=== PATIENT | female | born 1955 | race Caucasian/White ===

== ENCOUNTER 2021-10-07 11:53 | Outpatient (CLI) | payer MEDICARE, SELFPAY ==
--- OUTSIDE RECORDS SUMMARY | 2021-10-07 11:56 | XMS_ITS ---
:1955 Author Care Team Providers Name Role Phone EVARISTO PEÑA MD General Surgeon [phone] DEB ZAPATA MD Proof Passer Unavailable PADMA THAKUR MD Rac Specialist [phone] MORENA VASQUEZ Primary Care Provider [phone] CIARA BEAR MD Labor Economics Professor [phone] Allergies Code Code System Name Reaction Severity Status Onset NKDA ? Medications Name Status Start Date Stop Date ? ? acetaminophen 325 mg tablet Completed 05/08/201510/07 2 (two) Tablet Tablet: every 4 hours as needed Advair Diskus 250 mcg-50 Completed ? 018 mcg/dose powder for inhalation albuterol sulfate HFA 90 mcg/actuation aerosol inhaler Active ? Not available INHALE TWO PUFFS BY MOUTH EVERY 4 TO 6 HOURS NEEDED amoxicillin 500 mg capsule Active ? Not a vailable Anoro Ellipta 62.5 mcg-25 mcg/actuation powder for inhalation Ac tive ? Not available Inhale 1 puff every day by inhalation route. Augmentin 875 mg-125 mg tablet Completed ? 0 10/30/2019 Take 1 tablet every 12 hours by oral route for 10 days. Benadryl Itch Stopping 1 %-0.1 % topical cream Completed 0 04/28/2015 05/05/2015 1 (one) Cream Cream: apply 2-4 times a day to affected area Chantix Continuing Month Box 1 mg tablet Completed 009 05/28/2009 1 (one) Tablet: twice daily Combivent Respimat 20 mcg-100 mcg/actuation solution for inh alation Completed 09/19/2017 09/29/2017 1 Puff: 4 times per day for chronic obstructive pulmonary disea se Coumadin 10 mg tablet Completed 05/15/2015 05/15/2015 1 (one) Tablet: unknown Coumadin 5 mg tablet Completed 05/15/2015 06/02/2015 1 (one) Tablet: daily or as instructed Enbrel SureClick 50 mg/mL (1 Completed ? mL) subcutaneous pen injector folic acid 1 mg tablet Active ? Not avail able Take 1 tablet every day by oral route. furosemide 20 mg tablet Completed ? 10/16/19 20 Cheratussin AC 10 mg-100 mg/5 Active ? No t available mL oral liquid hydrochlorothiazide 12.5 mg tablet Active ? Not available Take 1 tablet every day by oral route for 90 days. Keflex 500 mg capsule Completed 08/07/2010 08/17/2010 1 (one) Cap: QID levofloxacin 500 mg tablet Completed ? 02/28 methotrexate 2.5 mg tablet Completed ? 11/01 Take 6 tablets every week by oral route. methotrexate sodium (PF) 25 Completed ? 06/06 mg/mL injection solution methotrexate sodium 25 mg/mL injection solution Active ? Not available 60 mg weekly Multi-Day tablet Completed 05/08/2015 05/08/2015 1 Tablet: daily mupirocin 2 % topical ointment Active ? N ot available APPLY A SMALL AMOUNT TO THE AFFECTED AREA BY TOPICAL ROUTE 3 TI MES PER DAY naproxen sodium 550 mg tablet Completed 05/08/2015 1 (one) Tablet: Twice daily as needed nicotine 21 mg/24 hr daily transdermal patch Completed 02/201504/28/2015 1 (one) Patch 24HR: daily omeprazole 20 mg capsule,delayed release Active ? Not available TAKE ONE CAPSULE BY MOUTH EVERY MORNING omeprazole 40 mg capsule,delayed release Completed 015 05/15/2015 1 (one) Capsule DR Capsule DR: daily oxycodone 10 mg tablet Completed 06/03/2015 5 1 (one) Tablet Tablet: every 4 hours as needed oxycodone 5 mg tablet Completed 06/03/2015 09/02/2015 1 (one) Tablet Tablet: bid - twice daily Percocet 5 mg-325 mg tablet Completed 08/03/201001/04 1 Tablet: 1-2 tabs PO q 4-6hrs PRN pain prednisone 10 mg tablet Active ? Not avai lable prednisone 2.5 mg tablet Active ? Not erin ilable Take 1 tablet every day by oral route. Spiriva with HandiHaler 18 mcg Completed ? 0 02/28/2018 and inhalation capsules sulfasalazine 500 mg tablet Completed 07/05/201609/05 1 (one) Tablet: as directed sulfasalazine 500 mg Completed ? 02/28/2018 tablet,delayed release tramadol 50 mg tablet Completed ? 04/18/2018 Valtrex 1 gram tablet Completed 08/16/2012 08/23/2012 1 Tablet: every eight hours azithromycin 250 mg tablet Active ? Not a vailable Problems Name Status Onset Date Source ? Herpes Zoster Unknown ? History Hyperlipidemia Active ? History Obesity Active ? History Anemia of Chronic Disease Unknown ? Histor y Anemia Active ? History Nicotine Dependence Active ? History Eustachian Tube Disorder Unknown ? History Acute Bronchitis Unknown ? History Disorder of Upper Respiratory System Unknown ? History Acute Exacerbation of Chronic Obstructive Unknown ? History Airways Disease Chronic Obstructive Lung Disease Active ? History Gastro-esophageal Reflux Disease with Unknown ? History Esophagitis Gastroesophageal Reflux Disease Active ? History Cholelithiasis without Obstruction Active ? History Rheumatoid Arthritis Active ? History Joint Pain Unknown ? History Torticollis Unknown ? History Ganglion Cyst Unknown ? History Generalized Enlarged Lymph Nodes Unknown ? History Snoring Active ? History History of Total Hip Arthroplasty Active ? History Artificial Knee Joint Present Active ? [employer] Adult Health Examination Active ? History Screening Mammography Active ? History At Risk - Finding Unknown ? History Pain in Right Hip Joint Unknown ? History Procedure by Method Unknown ? History Pain in Right Knee Unknown ? History Procedure Unknown ? History History of SARS-CoV-2 Active ? ? Procedures Date Name Performed by ? 10/25/2017 Colonoscopy Information not avai lable Notes: small rectal polyp/internal he morrhoids 10/25/2017 Colonoscopy Information not avai lable Notes: small rectal polyp, internal h emorrhoids 07/16/2010 Orthopedic Surgery Information not avai lable Notes: TKA 09/05/1997 Hemorrhoidectomy Information not avai lable 09/05/1981 Tubal Ligation Information not avai lable ? Hip Surgery Information not avai lable Notes: Right Total Hip ? Eye Surgery Information not avai lable Notes: both ? Hip Surgery Information not avai lable Notes: total Right hip ? Eye Surgery Information not avai lable Notes: both eyes 02/22/2018 US, Abdomen, Limited [facility] [address] [place] [address] (Work Place) 03/14/2018 XR, Ribs, Unilateral, W/ PA Chest [facility] (Internal) [address] [place] [address] (Work Place) 03/14/2018 XR, Scapula [facility] (Internal) [address] [place] [address] (Work Place) 09/11/2018 LDCT, Chest, for Lung Cancer Screening [facility] Radiology (Internal) [address] [place] [address] (Work Place) 11/02/2018 MAMMO, Screening, Tomosynthesis, [facility] (Internal) Bilateral [address] [place] [address] (Work Place) 11/15/2018 CT, Chest, W/o Contrast [facility] (Internal) [address] [place] [address] (Work Place) 08/20/2019 XR, Knee, 4 or More View [facility] Rad[facility] (Internal) [address] [place] [address] (Work Place) 10/30/2019 XR, Chest, 2 View [facility] Radiology (Internal) [address] [place] [address] (Work Place) 10/30/2019 US, Echocardiogram P_visiting Physician s [address] [place] [address] (Work Place) 11/02/2019 MAMMO, Screening, Tomosynthesis, [facility] (Internal) Bilateral [address] [place] [address] (Work Place) 01/03/2020 LDCT, Chest, for Lung Cancer Screening [facility] Radiology (Internal) [address] [place] [address] (Work Place) 05/08/2020 LDCT, Chest, for Lung Cancer Screening [facility] Radiology (Internal) [address] [place] [address] (Work Place) 09/10/2020 XR, Chest, 2 View [facility] Radiology (Internal) [address] [place] [address] (Work Place) 09/10/2020 XR, Ribs, Unilateral [facility] Radiology (Internal) [address] [place] [address] (Work Place) 04/14/2021 MAMMO, Screening, Tomosynthesis, [facility] (Internal) Bilateral [address] [place] [address] (Work Place) 04/14/2021 XR, Lumbosacral Spine, 2 or 3 View [facility] (Internal) [address] [place] [address] (Work Place) 04/14/2021 XR, Sacroiliac Joint(s), 3 or More [facility] (Internal) View [address] [place] [address] (Work Place) 04/14/2021 LDCT, Chest, for Lung Cancer Screening [facility] Radiology (Internal) [address] [place] [address] (Work Place) 07/16/2021 US, Echocardiogram, Transthoracic, [facility] (Internal) Complete [address] [place] [address] (Work Place) Results Lab Results Date Name Specimen Result Interpretation Description Value Range Status Address ? 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 ? SWAB ? Performi quan ? Final [place] ng Lab [address] [facility] lab Hospita l Lab (Internal) : [address] 07/16/2021 CBC W/ Auto BLD ? Wbc 7.4 5.0-10.0 Final [place] Diff 10*3/uL 10*3/uL [facility] L ab (Internal) : [address] ? ? BLD ? Rbc 4.18 4.10-5.30 Final [place] 10*6/uL 10*6/uL [facility] Hospital L ab (Internal) : [address] ? ? BLD ? Hgb 13.2 g/dL 12.0-16.0 Final Nort h g/dL [facility] Hospital L ab (Internal) : [address] ? ? BLD ? Hct 40.7 % 37.0-47.0 Final [facility] Hospital L ab (Internal) : [address] ? ? BLD High Mcv 97.4 fL 80.0-96.0 Final [facility] Hospital L ab (Internal) : [address] ? ? BLD ? Mch 31.6 pg 26.0-32.0 Final [facility] L ab (Internal) : [address] ? ? BLD ? Mchc 32.4 g/dL 31.0-35.0 Final Nort h g/dL [facility] Hospital L ab (Internal) : [address] ? ? BLD High Rdw 15.1 % 11.5-14.5 Final [facility] L ab (Internal) : [address] ? ? BLD ? Plt 320 130-450 Final [place] 10*3/uL 10*3/uL [facility] Hospital L ab (Internal) : [address] ? ? BLD ? Anc 5.19 ? Final [place] 10*3/uL [facility] L ab (Internal) : [address] ? ? BLD High Nlr 4.25 0.00-3.20 Final [facility] L ab (Internal) : [address] ? ? BLD ? Neutro 70.2 % 40.0-75.0 Final [facility] L ab (Internal) : [address] ? ? BLD Low Lymph 16.5 % 20.0-50.0 Final [facility] L ab (Internal) : [address] ? ? BLD ? [facility] 8.8 % 2.0-10.0 Final [facility] : [address] ? ? BLD ? Eos 3.5 % 1.0-6.0 % Final [facility] Hospital L ab (Internal) : [address] ? ? BLD ? Baso 0.7 % 0.0-1.0 % Final [facility] Hospital L ab (Internal) : [address] ? ? BLD ? Ig 0.3 % 0.0-0.9 % Final [facility] Hospital L ab (Internal) : [address] 07/16/2021 BNP (B-type S High Nt-bnp 152 pg/mL 0-125 [facility] [place] Natriuretic pg/mL Count ry Peptide), Hospita l Lab Prohormone (Inter nal): N-terminal, [address], [place] Immunoassay, Blood 07/16/2021 CMP, Serum or S ? g/r 106 mg/dL 74-106 Fin al [facility] Plasma mg/dL [facility] (Internal) : [address] ? ? S ? Bun 12 mg/dL 7-18 Final [facility] mg/dL [facility] Hospital L ab (Internal) : [address] ? ? S ? Crea 0.7 mg/dL 0.6-1.0 Final [facility] mg/dL [facility] (Internal) : [address] ? ? S ? Ca 9.1 mg/dL 8.5-10.1 Final [facility] mg/dL [facility] (Internal) : [address] ? ? S ? Na 141 136-145 Final [facility] mmol/L mmol/L [facility] (Internal) : [address] ? ? S ? K 4.2 3.5-5.1 Final [facility] mmol/L mmol/L [facility] (Internal) : [address] ? ? S ? Cl 105 98-107 Final [facility] mmol/l mmol/l [facility] (Internal) : [address] ? ? S ? Tco2 28.6 21.0-32.0 Final [facility] mmol/L mmol/L [facility] (Internal) : [address] ? ? S Low Tp 6.2 g/dL 6.4-8.2 Final [facility] g/dL [facility] (Internal) : [address] ? ? S ? Alb 3.4 g/dL 3.4-5.0 Final [facility] g/dL [facility] (Internal) : [address] ? ? S ? Tbil 0.40 0.20-1.00 Final [place] mg/dL mg/dL [facility] (Internal) : [address] ? ? S ? Alp 106 U/L 46-116 Final [place] U/L [facility] Hospital L ab (Internal) : [address] ? ? S ? Alt 25 U/L 14-59 U/L Final [place] (Sgpt) [facility] Hospital L ab (Internal) : [address] ? ? S Low Ast 14 U/L 15-37 U/L Final [place] (Sgot) [facility] Hospital L ab (Internal) : [address] 07/16/2021 HbA1C BLD ? Ha1C 5.8 % 4.0-6.0 % Final Nor th (Hemoglobin Count ry a1C), Blood [facility] Lab (Internal) : [address] 07/16/2021 RBC BLD ? Aniso occasiona ? Final Nor th Morphology, l Count Blood Hospital L ab (Internal) : [address] 06/18/2021 CBC W/ Auto BLD ? Wbc 5.2 5.0-10.0 Final [place] Diff 10*3/uL 10*3/uL [facility] Hospital L ab (Internal) : [address] ? ? BLD ? Rbc 4.19 4.10-5.30 Final [place] 10*6/uL 10*6/uL [facility] (Internal) : [address] ? ? BLD ? Hgb 13.0 g/dL 12.0-16.0 Final Nort h g/dL [facility] Hospital L ab (Internal) : [address] ? ? BLD ? Hct 39.5 % 37.0-47.0 Final [place] % [facility] Hospital L ab (Internal) : [address] ? ? BLD ? Mcv 94.3 fL 80.0-96.0 Final [facility] Hospital L ab (Internal) : [address] ? ? BLD ? Mch 31.0 pg 26.0-32.0 Final [facility] Hospital L ab (Internal) : [address] ? ? BLD ? Mchc 32.9 g/dL 31.0-35.0 Final Nort h g/dL [facility] Hospital L ab (Internal) : [address] ? ? BLD High Rdw 14.6 % 11.5-14.5 Final [facility] L ab (Internal) : [address] ? ? BLD ? Plt 315 130-450 Final [place] 10*3/uL 10*3/uL [facility] Hospital L ab (Internal) : [address] ? ? BLD ? Anc 3.96 ? Final [place] 10*3/uL [facility] Hospital L ab (Internal) : [address] ? ? BLD High Nlr 6.09 0.00-3.20 Final [facility] L ab (Internal) : [address] ? ? BLD High Neutro 76.7 % 40.0-75.0 Final [facility] L ab (Internal) : [address] ? ? BLD Low Lymph 12.6 % 20.0-50.0 Final [facility] L ab (Internal) : [address] ? ? BLD ? [facility] 9.1 % 2.0-10.0 Final [facility] L ab (Internal) : [address] ? ? BLD ? Eos 1.2 % 1.0-6.0 % Final [facility] L ab (Internal) : [address] ? ? BLD ? Baso 0.2 % 0.0-1.0 % Final [facility] L ab (Internal) : [address] ? ? BLD ? Ig 0.2 % 0.0-0.9 % Final [facility] L ab (Internal) : [address] 06/18/2021 CMP, Serum or S ? g/r 95 mg/dL 74-106 [facility] Plasma mg/dL [facility] (Internal) : [address] ? ? S ? Bun 8 mg/dL 7-18 Final [facility] mg/dL [facility] (Internal) : [address] ? ? S ? Crea 0.7 mg/dL 0.6-1.0 Final [facility] mg/dL [facility] (Internal) : [address] ? ? S ? Ca 8.7 mg/dL 8.5-10.1 Final [facility] mg/dL [facility] (Internal) : [address] ? ? S ? Na 137 136-145 Final [facility] mmol/L mmol/L [facility] (Internal) : [address] ? ? S Low K 3.4 3.5-5.1 Final [facility] mmol/L mmol/L [facility] (Internal) : [address] ? ? S Low Cl 97 mmol/l 98-107 Final [facility] mmol/l [facility] (Internal) : [address] ? ? S ? Tco2 31.9 21.0-32.0 Final [facility] mmol/L mmol/L [facility] (Internal) : [address] ? ? S ? Tp 7.3 g/dL 6.4-8.2 Final [facility] g/dL [facility] (Internal) : [address] ? ? S Low Alb 2.9 g/dL 3.4-5.0 Final [facility] g/dL [facility] (Internal) : [address] ? ? S ? Tbil 0.60 0.20-1.00 Final [facility] mg/dL mg/dL [facility] (Internal) : [address] ? ? S ? Alp 108 U/L 46-116 Final [facility] U/L [facility] (Internal) : [address] ? ? S ? Alt 23 U/L 14-59 U/L Final [facility] (Sgpt) [facility] (Internal) : [address] ? ? S ? Ast 26 U/L 15-37 U/L Final [place] (Sgot) [facility] Hospital L ab (Internal) : [address] [facility] 06/18/2021 Ldh, Serum or S High Ldh 285 U/L 81-234 Final [place] Plasma U/L [facility] L ab (Internal) : [address] [facility] 06/18/2021 Procalcitonin ? Pct <0.15 0.00-0.[address] [facility] , Serum NG/mL NG/mL [facility] L ab (Internal) : [address] [facility] 06/18/2021 D-dimer, PLASMA High Dimq 0.85 mg/L 0.00-0.50 Final [place] Quant, Plasma mg/L [facility] [address] [facility] 06/18/2021 Ferritin, S High Ferr 315 NG/mL 8-252 Final [place] Serum or NG/mL [facility] L ab (Internal) : [address] [facility] 06/18/2021 Respiratory FLUID ABNORMAL Final microbiol ? 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 ? SWAB ? Performi quan ? Final [place] ng Lab [address] [facility] lab Hospita l Lab (Internal) : [address] 05/25/2021 CBC W/ Auto BLD ? Wbc 7.6 5.0-10.0 Final [place] Diff 10*3/uL 10*3/uL [facility] [address] [facility] ? ? BLD ? Rbc 4.78 4.10-5.30 Final [place] 10*6/uL 10*6/uL [facility] (Internal) : [address] ? ? BLD ? Hgb 15.0 g/dL 12.0-16.0 Final Nort h g/dL [facility] Hospital L ab (Internal) : [address] ? ? BLD ? Hct 46.0 % 37.0-47.0 Final [facility] Hospital L ab (Internal) : [address] ? ? BLD High Mcv 96.2 fL 80.0-96.0 Final [facility] Hospital L ab (Internal) : [address] ? ? BLD ? Mch 31.4 pg 26.0-32.0 Final [facility] Hospital L ab (Internal) : [address] ? ? BLD ? Mchc 32.6 g/dL 31.0-35.0 Final Nort h g/dL [facility] Hospital L ab (Internal) : [address] ? ? BLD High Rdw 14.7 % 11.5-14.5 Final [facility] L ab (Internal) : [address] ? ? BLD ? Plt 289 130-450 Final [place] 10*3/uL 10*3/uL [facility] Hospital L ab (Internal) : [address] ? ? BLD ? Anc 5.68 ? Final [place] 10*3/uL [facility] Hospital L ab (Internal) : [address] ? ? BLD High Nlr 5.74 0.00-3.20 Final [facility] L ab (Internal) : [address] ? ? BLD ? Neutro 74.7 % 40.0-75.0 Final [facility] L ab (Internal) : [address] ? ? BLD Low Lymph 13.0 % 20.0-50.0 Final [facility] Hospital L ab (Internal) : [address] ? ? BLD ? [facility] 8.7 % 2.0-10.0 Final [facility] L ab (Internal) : [address] ? ? BLD ? Eos 2.4 % 1.0-6.0 % Final [facility] L ab (Internal) : [address] , [place] ? ? BLD ? Baso 0.8 % 0.0-1.0 % Final [facility] Hospital L ab (Internal) : [address] ? ? BLD ? Ig 0.4 % 0.0-0.9 % Final [facility] Hospital L ab (Internal) : [address] 05/25/2021 HbA1C BLD ? Ha1C 5.3 % 4.0-6.0 % Final Nor th (Hemoglobin Count ry a1C), Blood [facility]pi [facility] Lab (Internal) : [address] 05/25/2021 CMP, Serum or S ? g/r 97 mg/dL 74-106 [facility] Plasma mg/dL [facility] (Internal) : [address] ? ? S ? Bun 10 mg/dL 7-18 Final [facility] mg/dL [facility] (Internal) : [address] ? ? S ? Crea 0.6 mg/dL 0.6-1.0 Final [facility] mg/dL [facility] (Internal) : [address] ? ? S ? Ca 8.5 mg/dL 8.5-10.1 Final [facility] mg/dL [facility] (Internal) : [address] ? ? S ? Na 136 136-145 Final [facility] mmol/L mmol/L [facility] (Internal) : [address] ? ? S ? K 4.2 3.5-5.1 Final [place] mmol/L mmol/L [facility] (Internal) : [address] ? ? S ? Cl 98 mmol/l 98-107 Final [facility] mmol/l [facility] (Internal) : [address] ? ? S ? Tco2 27.1 21.0-32.0 Final [facility] mmol/L mmol/L [facility] (Internal) : [address] ? ? S ? Tp 7.0 g/dL 6.4-8.2 Final [facility] g/dL [facility] (Internal) : [address] ? ? S ? Alb 3.4 g/dL 3.4-5.0 Final [place] g/dL [facility] L ab (Internal) : [address] ? ? S ? Tbil 0.50 0.20-1.00 Final [place] mg/dL mg/dL [facility] L ab (Internal) : [address] ? ? S ? Alp 115 U/L 46-116 Final [place] U/L [facility] L ab (Internal) : [address] ? ? S ? Alt 17 U/L 14-59 U/L Final [place] (Sgpt) [facility] L ab (Internal) : [address] ? ? S Low Ast 10 U/L 15-37 U/L Final [place] (Sgot) [facility] L ab (Internal) : [address] 05/25/2021 Lipid Panel, S ? Chol 189 mg/dL 0-200 Kae l [place] Serum mg/dL [facility] L ab (Internal) : [address] ? ? S ? Trig 96 mg/dL 0-150 Final [place] mg/dL [facility] L ab (Internal) : [address] ? ? S High Hdl 65 mg/dL 40-60 Final [place] mg/dL [facility] L ab (Internal) : [address] ? ? S ? Ldl 105 mg/dL 0-130 Final [place] mg/dL [facility] (Internal) : [address] [facility] ESR BLD ? Esr 9 mm/h 0-30 mm/h Final Nor th (Erythrocyte Coun try Sediment[facility] Hos [facility]ital Lab Rate), Blood (Int ernal): [address] [facility]21 CRP, High S High Rcrp 24.19 0.00-3.00 Final [place] Sensitivity, mg/L mg/L Coun try Serum or Hospital Lab Plasma (Internal) : [address] 05/25/2021 Vitamin D, S ? 25-[place] <4.0 ? Final [place] 25-Hydroxy, xy D2 NG/mL Count ry Total, Serum Hosp ital Lab (Internal) : [address] ? ? S ? 25-[place] 26 NG/mL ? Final [place] xy D3 [facility] (Internal) : [address] ? ? S ? 25-[place] 26 NG/mL ? Final [place] xy D [facility] Total Hospital L ab (Internal) : [address] 10/30/2019 CBC W/ Auto BLD ? Wbc 7.3 5.0-10.0 Final [place] Diff 10*3/uL 10*3/uL [facility] (Internal) : [address] ? ? BLD ? Rbc 4.59 4.10-5.30 Final [place] 10*6/uL 10*6/uL [facility] Hospital L ab (Internal) : [address] ? ? BLD ? Hgb 13.6 g/dL 12.0-16.0 Final Nort h g/dL [facility] Hospital L ab (Internal) : [address] ? ? BLD ? Hct 43.7 % 37.0-47.0 Final [facility] Hospital L ab (Internal) : [address] ? ? BLD ? Mcv 95.2 fL 80.0-96.0 Final [facility] Hospital L ab (Internal) : [address] ? ? BLD ? Mch 29.6 pg 26.0-32.0 Final [facility] Hospital L ab (Internal) : [address] ? ? BLD ? Mchc 31.1 g/dL 31.0-35.0 Final Nort h g/dL [facility] L ab (Internal) : [address] t ? ? BLD High Rdw 15.7 % 11.5-14.5 Final [facility] L ab (Internal) : [address] t ? ? BLD ? Plt 296 130-450 Final [place] 10*3/uL 10*3/uL [facility] L ab (Internal) : [address] t ? ? BLD ? Anc 5.79 ? Final [place] 10*3/uL [facility] L ab (Internal) : [address] t ? ? BLD High Neutro 78.9 % 40.0-75.0 Final [facility] L ab (Internal) : [address] t ? ? BLD Low Lymph 10.4 % 20.0-50.0 Final [facility] L ab (Internal) : [address] ? ? BLD ? [facility] [place] 7.9 % 2.0-10.0 Final [facility] L ab (Internal) : [address] ? ? BLD ? Eos 1.8 % 1.0-6.0 % Final [facility] L ab (Internal) : [address] t ? ? BLD ? Baso 0.7 % 0.0-1.0 % Final [facility] L ab (Internal) : [address] ? ? BLD ? Ig 0.3 % 0.0-0.9 % Final [facility] L ab (Internal) : [address] t 10/30/2019 RBC BLD ? Aniso small ? Final [place] Morphology, Count Blood Hospital L ab (Internal) : [address] t ? ? BLD ? Polychro occasiona ? Final Nort h m l [facility] L ab (Internal) : [address] t ? ? BLD ? Baso rare ? Final [facility] L ab (Internal) : [address] 10/30/2019 CMP, Serum or S ? g/r 100 mg/dL 74-106 Fin al [place] Plasma mg/dL [facility] L ab (Internal) : [address] t ? ? S ? Bun 11 mg/dL 7-17 Final North mg/dL [facility] L ab (Internal) : [address] t ? ? S Low Crea 0.50 0.52-1.04 Final [place] mg/dL mg/dL [facility] L ab (Internal) : [address] t ? ? S ? Ca 9.1 mg/dL 8.4-10.2 Final [place] mg/dL [facility] L ab (Internal) : [address] t ? ? S ? Na 138 137-145 Final [place] mmol/L mmol/L [facility] L ab (Internal) : [address] t ? ? S ? K 4.4 3.5-5.1 Final [place] mmol/L mmol/L [facility] L ab (Internal) : [address], [place] ? ? S ? Cl 102 98-107 Final [place] mmol/L mmol/L [facility] L ab (Internal) : [address] t ? ? S ? Tco2 26.0 22.0-30.0 Final [place] mmol/L mmol/L [facility] L ab (Internal) : [address] t ? ? S ? Tp 7.0 g/dL 6.3-8.2 Final [place] g/dL [facility] L ab (Internal) : [address] t ? ? S ? Alb 3.9 g/dL 3.5-5.0 Final [place] g/dL [facility] L ab (Internal) : [address] ? ? S ? Tbil 0.5 mg/dL 0.2-1.3 Final [place] mg/dL [facility] L ab (Internal) : [address] t ? ? S ? Alp 108 U/L 38-126 Final North U/L [facility] L ab (Internal) : [address] t ? ? S ? Alt 18 U/L 9-52 U/L Final [place] (Sgpt) [facility] L ab (Internal) : [address] t ? ? S ? Ast 27 U/L 14-36 U/L Final [place] (Sgot) [facility] L ab (Internal) : [address] 10/30/2019 Ferritin, S ? Ferr 26 NG/mL 11-264 Final N orth Serum or NG/mL [facility] Hospital L ab (Internal) : [address] 10/30/2019 Iron S ? Iron 142 ug/dL 37-170 Final Nor th Saturation, ug/dL Count ry Serum Hospital L ab (Internal) : [address] t ? ? S ? Tibc 371 ug/dL 265-497 Final North ug/dL [facility] L ab (Internal) : [address] t ? ? S ? Sat 38 % 20-55 % Final [facility] L ab (Internal) : [address] 09/14/2018 Ferritin, S Low Ferr 8 NG/mL 11-264 Final No rth Serum or NG/mL [facility] Hospital L ab (Internal) : [address] 09/14/2018 RBC BLD - Aniso moderate ? Final Nort h Morphology, Count ry Blood Hospital L ab (Internal) : [address] ? ? BLD - Polychro occasiona ? Final Nort h m l [facility] L ab (Internal) : [address] 09/14/2018 Iron S - Iron 48 ug/dL 37-170 Final Nort h Saturation, ug/dL Count ry Serum Hospital L ab (Internal) : [address] ? ? S - Tibc 430 ug/dL 265-497 Final North ug/dL [facility] L ab (Internal) : [address] ? ? S Low Sat 11 % 20-55 % Final [facility] L ab (Internal) : [address] 09/14/2018 CRP, High S High Rcrp 1.31 0.10-0.30 Final [place] Sensitivity, mg/dL mg/dL Coun try Serum or Hospital Lab Plasma (Internal) : [address] 09/14/2018 CMP, Serum or S High g/r 120 mg/dL 74-106 Fin al [facility] Plasma mg/dL [facility] L ab (Internal) : [address] ? ? S - Bun 11 mg/dL 7-17 Final North mg/dL [facility] L ab (Internal) : [address] ? ? S - Crea 0.60 0.52-1.04 Final North mg/dL mg/dL [facility] L ab (Internal) : [address] ? ? S - Ca 8.9 mg/dL 8.4-10.2 Final [place] mg/dL [facility] L ab (Internal) : [address] ? ? S - Na 139 137-145 Final North mmol/L mmol/L [facility] L ab (Internal) : [address] ? ? S - K 4.1 3.5-5.1 Final [place] mmol/L mmol/L [facility] L ab (Internal) : [address] ? ? S - Cl 102 98-107 Final [place] mmol/L mmol/L [facility] L ab (Internal) : [address] ? ? S - Tco2 27.0 22.0-30.0 Final [place] mmol/L mmol/L [facility] L ab (Internal) : [address] ? ? S - Tp 6.8 g/dL 6.3-8.2 Final [place] g/dL [facility] L ab (Internal) : [address] ? ? S - Alb 3.8 g/dL 3.5-5.0 Final [place] g/dL [facility] L ab (Internal) : [address] t ? ? S - Tbil 0.4 mg/dL 0.2-1.3 Final [place] mg/dL [facility] L ab (Internal) : [address] ? ? S - Alp 105 U/L 38-126 Final [place] U/L [facility] L ab (Internal) : [address] ? ? S - Alt 18 U/L 9-52 U/L Final [place] (Sgpt) [facility] L ab (Internal) : [address] ? ? S - Ast 29 U/L 14-36 U/L Final [place] (Sgot) [facility] L ab (Internal) : [address] 09/14/2018 CBC W/ Auto BLD - Wbc 7.8 5.0-10.0 Final [place] Diff 10*3/uL 10*3/uL [facility] L ab (Internal) : [address] ? ? BLD - Rbc 4.29 4.10-5.30 Final [place] 10*6/uL 10*6/uL [facility] L ab (Internal) : [address] ? ? BLD - Hgb 12.2 g/dL 12.0-16.0 Final Nort h g/dL [facility] L ab (Internal) : [address] ? ? BLD - Hct 40.0 % 37.0-47.0 Final [place] % [facility] L ab (Internal) : [address] ? ? BLD - Mcv 93.2 fL 80.0-96.0 Final [place] fL [facility] L ab (Internal) : [address] ? ? BLD - Mch 28.4 pg 26.0-32.0 Final [facility] L ab (Internal) : [address] t ? ? BLD Low Mchc 30.5 g/dL 31.0-35.0 Final Nort h g/dL [facility] L ab (Internal) : [address] t ? ? BLD High Rdw 18.2 % 11.5-14.5 Final [facility] L ab (Internal) : [address] t ? ? BLD - Plt 260 130-450 Final [place] 10*3/uL 10*3/uL [facility] L ab (Internal) : [address] t ? ? BLD - Anc 6.05 ? Final [place] 10*3/uL [facility] L ab (Internal) : [address] t ? ? BLD High Neutro 77.9 % 40.0-75.0 Final [facility] L ab (Internal) : [address] t ? ? BLD Low Lymph 13.1 % 20.0-50.0 Final [facility] L ab (Internal) : [address] t ? ? BLD - [facility] 6.0 % 2.0-10.0 Final [facility] L ab (Internal) : [address] ? ? BLD - Eos 2.2 % 1.0-6.0 % Final [facility] L ab (Internal) : [address] ? ? BLD - Baso 0.5 % 0.0-1.0 % Final [facility] L ab (Internal) : [address] ? ? BLD - Ig 0.3 % 0.0-0.9 % Final [facility] L ab (Internal) : [address] 10/25/2017 Pathology TISS ? Report results ? Final N orth Study [facility] L ab (Internal) : [address] 09/19/2017 Venipuncture BLD ? Venpn* ? ? Final [facility] L ab (Internal) : [address] 09/19/2017 RBC BLD ? Aniso moderate ? Final Nort h Morphology, Count [facility] L ab (Internal) : [address] t ? ? BLD ? Hypo small ? Final [facility] L ab (Internal) : [address] t 09/19/2017 CBC W/ Auto BLD ? Wbc 6.9 5.0-10.0 Final [place] Diff 10*3/uL 10*3/uL [facility] L ab (Internal) : [address] t ? ? BLD ? Rbc 4.38 4.10-5.30 Final [place] 10*6/uL 10*6/uL [facility] L ab (Internal) : [address] t ? ? BLD Low Hgb 10.2 g/dL 12.0-16.0 Final Nort h g/dL [facility] L ab (Internal) : [address] t ? ? BLD Low Hct 35.7 % 37.0-47.0 Final [facility] L ab (Internal) : [address] t ? ? BLD ? Mcv 81.5 fL 80.0-96.0 Final [facility] L ab (Internal) : [address] ? ? BLD Low Mch 23.3 pg 26.0-32.0 Final [facility] L ab (Internal) : [address] ? ? BLD Low Mchc 28.6 g/dL 31.0-35.0 [facility] L ab (Internal) : [address] t ? ? BLD High Rdw 18.7 % 11.5-14.5 Final [facility] L ab (Internal) : [address] t ? ? BLD ? Plt 370 130-450 Final [place] 10*3/uL 10*3/uL [facility] L ab (Internal) : [address] t ? ? BLD ? Anc 4.75 ? Final [place] 10*3/uL [facility] L ab (Internal) : [address] t ? ? BLD ? Neutro 68.7 % 40.0-75.0 Final [facility] L ab (Internal) : [address] ? ? BLD Low Lymph 17.2 % 20.0-50.0 Final [facility] L ab (Internal) : [address] ? ? BLD High [facility] [place] 11.1 % 2.0-10.0 Final [facility] L ab (Internal) : [address] ? ? BLD ? Eos 2.5 % 1.0-6.0 % Final [facility] L ab (Internal) : [address] ? ? BLD ? Baso 0.4 % 0.0-1.0 % Final [facility] L ab (Internal) : [address] ? ? BLD ? Ig 0.1 % 0.0-0.9 % Final [facility] L ab (Internal) : [address] 07/05/2017 Pap Test, MISC ? Hpv see ? Final [facility] Thinprep, report [facility] Hospital Lab (Internal) : [address] ? ? MISC ? Pap see ? Final [place] report [facility] L ab (Internal) : [address] ? ? MISC ? Report (added) ? Correc [place] results [facility] L ab (Internal) : [address] 05/02/2017 Venipuncture BLD ? Venpn* ? ? Final [facility] L ab (Internal) : [address] 05/02/2017 TIBC (Total SERUM ? Tibc 422 ug/dL 265-497 Kae l [place] Iron-binding ug/dL Coun try Capacity), Hospit al Lab Serum (Internal) : [address] 05/02/2017 Iron, Serum SERUM Low [place] 19 ug/dL 37-170 Final [place] ug/dL [facility] L ab (Internal) : [address] 05/02/2017 RBC BLD ? Aniso small ? Final [place] Morphology, Count Blood Hospital L ab (Internal) : [address] ? ? BLD ? Hypo rare ? Final [facility] L ab (Internal) : [address] t 05/02/2017 CBC W/ Auto BLD ? Wbc 8.2 5.0-10.0 Final [place] Diff 10*3/uL 10*3/uL [facility] L ab (Internal) : [address] ? ? BLD ? Rbc 4.14 4.10-5.30 Final [place] 10*6/uL 10*6/uL [facility] L ab (Internal) : [address] ? ? BLD Low Hgb 9.7 g/dL 12.0-16.0 Final North g/dL [facility] L ab (Internal) : [address] ? ? BLD Low Hct 33.2 % 37.0-47.0 Final [facility] L ab (Internal) : [address] ? ? BLD ? Mcv 80.2 fL 80.0-96.0 Final [facility] L ab (Internal) : [address] t ? ? BLD Low Mch 23.4 pg 26.0-32.0 Final [facility] Hospital L ab (Internal) : [address] ? ? BLD Low Mchc 29.2 g/dL 31.0-35.0 Final Nort h g/dL [facility] L ab (Internal) : [address] t ? ? BLD High Rdw 19.5 % 11.5-14.5 Final [facility] L ab (Internal) : [address] t ? ? BLD ? Plt 324 130-450 Final [place] 10*3/uL 10*3/uL [facility] L ab (Internal) : [address] t ? ? BLD ? Anc 6.11 ? Final [place] 10*3/uL [facility] L ab (Internal) : [address] t ? ? BLD ? Neutro 74.6 % 40.0-75.0 Final [facility] L ab (Internal) : [address] t ? ? BLD Low Lymph 12.7 % 20.0-50.0 Final [facility] L ab (Internal) : [address] ? ? BLD ? [facility] [place] 9.8 % 2.0-10.0 Final [facility] L ab (Internal) : [address] t ? ? BLD ? Eos 1.8 % 1.0-6.0 % Final [facility] L ab (Internal) : [address] ? ? BLD ? Baso 0.7 % 0.0-1.0 % Final [facility] L ab (Internal) : [address] ? ? BLD ? Ig 0.4 % 0.0-0.9 % Final [facility] L ab (Internal) : [address] 05/02/2017 Ferritin, S Low Ferr 6 NG/mL 11-264 Final No rth Serum or NG/mL [facility] L ab (Internal) : [address] 03/28/2017 Venipuncture BLD ? Venpn* ? ? Final [facility] L ab (Internal) : [address] 03/28/2017 CMP, Serum or S High g/r 108 mg/dL 74-106 Fin al [place] Plasma mg/dL [facility] L ab (Internal) : [address] t ? ? S ? Bun 12 mg/dL 7-17 Final North mg/dL [facility] L ab (Internal) : [address] ? ? S ? Crea 0.60 0.52-1.04 Final [place] mg/dL mg/dL [facility] L ab (Internal) : [address] t ? ? S ? Ca 8.9 mg/dL 8.4-10.2 Final [place] mg/dL [facility] L ab (Internal) : [address] t ? ? S Low Na 135 137-145 Final [place] mmol/L mmol/L [facility] L ab (Internal) : [address] ? ? S ? K 4.2 3.5-5.1 Final [place] mmol/L mmol/L [facility] L ab (Internal) : [address] t ? ? S ? Cl 101 98-107 Final [place] mmol/L mmol/L [facility] L ab (Internal) : [address] ? ? S ? Tco2 27.0 22.0-30.0 Final [place] mmol/L mmol/L [facility] L ab (Internal) : [address] ? ? S ? Tp 7.1 g/dL 6.3-8.2 Final [place] g/dL [facility] L ab (Internal) : [address] ? ? S ? Alb 3.9 g/dL 3.5-5.0 Final [place] g/dL [facility] L ab (Internal) : [address] ? ? S ? Tbil 0.6 mg/dL 0.2-1.3 Final [place] mg/dL [facility] L ab (Internal) : [address] ? ? S ? Alp 126 U/L 38-126 Final [place] U/L [facility] L ab (Internal) : [address] ? ? S ? Alt 21 U/L 9-52 U/L Final [place] (pt) [facility] L ab (Internal) : [address] ? ? S ? Ast 20 U/L 14-36 U/L Final [place] (Sgot) [facility] L ab (Internal) : [address] t 02/28/2017 Venipuncture BLD ? Venpn* ? ? Final [facility] L ab (Internal) : [address] 02/28/2017 RBC BLD ? Aniso large ? Final [place] Morphology, Count Blood Hospital L ab (Internal) : [address] ? ? BLD ? Hypo small ? Final [facility] ab (Internal) : [address] ? ? BLD ? Micro small ? Final [facility] L ab (Internal) : [address] ? ? BLD ? Poik small ? Final [place] [hpf] [facility] L ab (Internal) : [address] ? ? BLD ? Polychro small ? Final [facility] L ab (Internal) : [address] t 02/28/2017 CRP, High S High Rcrp 6.78 0.10-0.30 Final [place] Sensitivity, mg/dL mg/dL Coun try Serum or Hospital Lab Plasma (Internal) : [address] t 02/28/2017 ESR BLD High Esr 35 mm/h 0-30 mm/h Final No rth (Erythrocyte Coun try [facility] Lab Rate), Blood (Int ernal): [address] 02/28/2017 CBC W/ Auto BLD ? Wbc 6.6 5.0-10.0 Final [place] Diff 10*3/uL 10*3/uL [facility] L ab (Internal) : [address] ? ? BLD ? Rbc 4.14 4.10-5.30 Final [place] 10*6/uL 10*6/uL [facility] L ab (Internal) : [address] ? ? BLD Low Hgb 9.7 g/dL 12.0-16.0 Final [place] g/dL [facility] L ab (Internal) : [address] ? ? BLD Low Hct 33.0 % 37.0-47.0 Final [facility] L ab (Internal) : [address] ? ? BLD Low Mcv 79.7 fL 80.0-96.0 Final [facility] Hospital L ab (Internal) : [address] ? ? BLD Low Mch 23.4 pg 26.0-32.0 Final [facility] L ab (Internal) : [address] ? ? BLD Low Mchc 29.4 g/dL 31.0-35.0 Final Nort h g/dL [facility] L ab (Internal) : [address] ? ? BLD High Rdw 19.9 % 11.5-14.5 Final [facility] L ab (Internal) : [address] ? ? BLD ? Plt 351 130-450 Final [place] 10*3/uL 10*3/uL [facility] L ab (Internal) : [address] ? ? BLD ? Anc 4.71 ? Final [place] 10*3/uL [facility] L ab (Internal) : [address] ? ? BLD ? Neutro 71.3 % 40.0-75.0 Final [facility] L ab (Internal) : [address] ? ? BLD Low Lymph 16.4 % 20.0-50.0 Final [facility] L ab (Internal) : [address] ? ? BLD ? [facility] 9.4 % 2.0-10.0 Final [facility] L ab (Internal) : [address] ? ? BLD ? Eos 2.1 % 1.0-6.0 % Final [facility] ab (Internal) : [address] ? ? BLD ? Baso 0.6 % 0.0-1.0 % Final [facility] ab (Internal) : [address] ? ? BLD ? Ig 0.2 % 0.0-0.9 % Final [facility] ab (Internal) : [address] Past Encounters 07/16/2021 Dyspnea on Exertion; Obesity; Rheumatoid Arthritis; Chronic Obstructive Lung Disease; Pneumonia Caused by SARS-CoV-2; Hypertensive Disorder Morena Beasley PA: [address] [place] [address], Ph. 07/01/2021 Pneumonia Caused by SARS-CoV-2; Paronych ia of Finger; Hypervolemia; Dyspnea on Exertion Morena Beasley PA: [address] [place] [address], Ph. 06/18/2021 Acute Exacerbation of Chronic Obstructiv e Airways Disease Morena Beasley PA: [address] [place] [address], Ph. 04/14/2021 Adult Health Examination; Screening Mamm ography; Hyperlipidemia; Rheumatoid Arthritis; Chronic Obstructive Lung Disease; Vitamin D Deficiency; Administration of Pneumococcal Vaccine; Low Back Pain; Hype rtensive Disorder; Obesity; Screening fo r Malignant Neoplasm of Respiratory Tract; Nicotine Dependence Morena Beasley PA: [address] [place] [address], Ph. 09/11/2020 Contusion of Left Chest Wall; Elevated B lood-pressure Reading without Diagnosis of Hypertension Morena Beasley PA: [address] [place] [address], Ph. 05/08/2020 Chronic Obstructive Lung Disease; Smoker Deb Zapata MD: [address] [place] [address], Ph. Social History Tobacco Smoking Status Light Tobacco Smoker (09/08 Notes: q uit -4 pack per day) cigarettes per day s tarted age 16- 1 ppd average Vaccine List Vaccine Type pneumococcal conjugate PCV 13 04/14/2021?0.5 mL rubella Td (adult) preservative free 07/05/2017?0.5 mL Tdap 05/28/2009?0.5 mL Plan of Care Reminders Provider Appointments None ? ? recorded. Lab None ? ? recorded. Referral None ? ? recorded. Procedures None ? ? recorded. Surgeries None ? ? recorded. Imaging None ? ? recorded. Vitals 07/16/2021 08:20AM Follow Up 20 Height Weight BMI Blood Pressure 152.4 cm 95.71 kg 41.2 kg/m2 120/80 mm[Hg] 07/01/2021 11:20AM Same Day 20 Height Weight BMI Blood Pressure 152.4 cm 94.55 kg 40.7 kg/m2 130/84 mm[Hg] 04/14/2021 03:40PM AWV 40 Height Weight BMI Blood Pressure 152.4 cm 101.2 kg 43.6 kg/m2 144/82 mm[Hg] 09/11/2020 08:40AM Acute 20 Height Weight BMI Blood Pressure 152.4 cm 99.52 kg 42.8 kg/m2 148/82 mm[Hg] 05/08/2020 02:30PM Follow Up 30 Height Weight BMI Blood Pressure 152.4 cm 99.9 kg 43 kg/m2 163/86 mm[Hg] 01/03/2020 10:00AM Follow Up 30 Height 152.4 cm 10/30/2019 09:40AM Follow Up 20 Height Weight BMI Blood Pressure 152.4 cm 104.14 kg 44.8 kg/m2 146/90 mm[Hg] 10/16/2019 11:00AM Acute 20 Height Weight BMI Blood Pressure 152.4 cm 104.42 kg 45 kg/m2 142/76 mm[Hg] 08/20/2019 02:15PM Office 30 Height 152.4 cm 11/15/2018 01:40PM Any 40 Height Weight BMI Blood Pressure 152.4 cm 107.1 kg 46.1 kg/m2 (1) 140/78 mm[H g] (2) 142/90 mm[Hg ] 11/15/2018 03:30PM Follow Up 30 Height Weight BMI Blood Pressure 152.4 cm 107.8 kg 46.4 kg/m2 158/80 mm[Hg] 11/01/2018 12:40PM Acute 20 Height Weight BMI Blood Pressure 152.4 cm 107.13 kg 46.1 kg/m2 154/98 mm[Hg] 04/18/2018 09:00AM Office 15 Height Weight BMI Blood Pressure 152.4 cm 100.7 kg 43.4 kg/m2 124/78 mm[Hg] 03/14/2018 10:40AM Acute 20 Height Weight BMI Blood Pressure 152.4 cm 102.65 kg 44.2 kg/m2 164/94 mm[Hg] 02/22/2018 05:00PM Acute 40 Height Weight BMI Blood Pressure 152.4 cm 103.24 kg 44.4 kg/m2 128/72 mm[Hg] 11/23/2017 Height Weight Blood Pressure 152.4 cm 101.6 kg 160/88 mm[Hg] 11/01/2017 Weight Blood Pressure 99.54 kg 152/98 mm[Hg] 09/29/2017 Weight Blood Pressure 98.29 kg 142/70 mm[Hg] 09/19/2017 Weight Blood Pressure 98.52 kg 131/75 mm[Hg] 09/12/2017 Weight Blood Pressure 98.43 kg 122/70 mm[Hg] 07/05/2017 Weight Blood Pressure 96.34 kg 150/85 mm[Hg] 01/10/2017 Weight Blood Pressure 94.17 kg 152/88 mm[Hg] 09/02/2015 Height Weight Blood Pressure 152.4 cm 88.04 kg 150/100 mm[Hg] 07/15/2015 Height Weight Blood Pressure 152.4 cm 86.73 kg 128/72 mm[Hg] 06/09/2015 Weight Blood Pressure 86.73 kg 124/80 mm[Hg] 04/28/2015 Blood Pressure 108/70 mm[Hg] 04/22/2015 Height Weight Blood Pressure 152.4 cm 86.68 kg 132/75 mm[Hg] 03/10/2015 Height Weight Blood Pressure 152.4 cm 86.68 kg 124/82 mm[Hg] 09/17/2014 Weight Blood Pressure 83.78 kg 122/76 mm[Hg] 01/14/2014 Height Weight Blood Pressure 154.94 cm 84.23 kg 116/68 mm[Hg] 08/23/2012 Weight Blood Pressure 85 kg (1) 136/92 mm[Hg] (2) 144/82 mm[Hg] 08/11/2012 Weight Blood Pressure 86.05 kg 134/66 mm[Hg] 10/14/2010 Weight 77.82 kg 08/12/2010 Weight 77.82 kg 08/07/2010 Weight Blood Pressure 77.82 kg 122/74 mm[Hg] 07/01/2010 Weight Blood Pressure 78.27 kg (1) 124/82 mm[Hg] (2) 140/82 mm[Hg] 06/01/2010 Weight Blood Pressure 78.67 kg 124/82 mm[Hg] 05/26/2010 Height Weight 153.67 cm 79.83 kg 05/01/2010 Height Weight Blood Pressure 153.67 cm 79.83 kg 120/60 mm[Hg] 11/18/2009 Weight Blood Pressure 78.02 kg 140/82 mm[Hg] 05/28/2009 Weight Blood Pressure 75.3 kg 130/90 mm[Hg] 02/21/2009 Height Weight Blood Pressure 154.31 cm 75.3 kg 142/80 mm[Hg] 12/22/2006 Height Weight Blood Pressure 154.94 cm 76.66 kg 122/80 mm[Hg] 07/08/2005 Height Weight Blood Pressure 154.94 cm 73.48 kg 120/66 mm[Hg]
--- OUTSIDE RECORDS SUMMARY | 2021-10-07 11:56 | XMS_ITS | Encounter Summary ---
:1955 Author Care Team Providers Name Role Phone Morena VASQUEZ Primary Care Provider [phone] Tae Cochran MD Spine Nurse [phone] Ciera Cedeno MD General Surgeon [phone] Deb Zapata MD Pattern Attendant Unavailable Jose Francisco Khan MD Powertrain Control Systems Engineer [phone] Reason for Visit Bilateral low back pain; hypertension Assessment and Plan 1. 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 ASCVD risk factors: age, obesity, former smoker, htn, hld Will proceed with basic serologies and e chocardiogram consider cards referral congratulated on tobacco cessation she continues anoro daily, has not requi red her rescue inhaler ? US, echocardiogram, transt horacic, complete ? BNP (B-type natriuretic pe ptide), prohormone N-terminal, quant, immunoassay, blood ? CBC w/ auto diff ? CMP, serum or plasma 2. Obesity BMI 43.6%. Reviewed diet, recommended she reduce et oh and carbohydrates. discussed if women chose to drink they s hould not consume more than 7 etoh beverages per week ? HbA1c (hemoglobin A1c), bl ood 3. Rheumatoid arthritis Followed by Dr. Khan. Last se en 07/14/21 (telehealth). She is currently on methotrexate 60 mg qweek and will be sta rting prednisone 2.5 mg qd. 4. Chronic obstructive lung dise ase Currently stable. She is on an luna daily, she has not required rescue inhaler. She has quit smoking since covi d19. She is utd on LDCT. She is utd on PCV13, PPSV23 04/2022. Encouraged covid19 vaccin ation, pt refuses flu. 5. Pneumonia caused by SARS-CoV- 2 65-year-old female, current ev eryday smoker, with pertinent past medical history of COPD and rheumatoid arthritis on methotrexate who was admitted to [facility] in [facility] 06/18/2021 to 06/23/2021 for COVID-19 pneumonia. At the time of infection patient had kno wn COVID-19 exposure and was unvaccinated. While admitted to the hospital she required supplemental oxygen, she was treated with Decadron and remdesivir. She impr nabil throughout her stay, was weaned fro m oxygen and discharged 06/23/2021. Patient endorses significant improvement in her SOB at rest and dyspnea on exertion has returned to baseline. She is not coughing. There is no chest pain or pressure. She has no evidence of murmur on physical examination. 6. Hypertensive disorder BP normotensive in clinic on l ow dose hctz. No change in plan of care. Discussion Note: None recorded.Patient educational handouts: No information available. Plan of Care Reminders Provider Appointments Follow up 20 El izabeth 10/16/2021 PEDRO Beasley 10:20AM ? Awv 40 Mroena 04/15/2022 PEDRO Beasley 10:40AM Lab BNP (B-type [place] Natriuretic Peptide), 07/16/2021 Hospital L ab Prohormone N-terminal, (Internal ) Quant, Immunoassay, Blood ? CBC W/ Auto [place] Diff 07/16/2021 [facility] Lab (Internal) ? CMP, Serum or [facility] Plasma 07/16/2021 [facility] Lab (Internal) ? HbA1C [facility] ry (Hemoglobin a1C), Blood 07/16/2021 [facility] Lab (Internal) Referral None recorded. ? ? Procedures None recorded. ? ? Surgeries None recorded. ? ? Imaging US, [facility] ry Echocardiogram, 07/16/2021 [facility] Radiolo gy Transthoracic, Complete (Interna l) Medications Name Start Date ? ? albuterol sulfate HFA 90 mcg/actuation aerosol inhaler ? INHALE TWO PUFFS BY MOUTH EVERY 4 TO 6 HOURS NEEDE D amoxicillin 500 mg capsule ? Anoro Ellipta 62.5 mcg-25 mcg/actuation powder for inh alation ? Inhale 1 puff every day by inhalation route. folic acid 1 mg tablet ? Take 1 tablet every day by oral route. hydrochlorothiazide 12.5 mg tablet ? Take 1 tablet every day by oral route for 90 days. methotrexate sodium 25 mg/mL injection solution ? 60 mg weekly mupirocin 2 % topical ointment ? APPLY A SMALL AMOUNT TO THE AFFECTED AREA BY TOPICAL ROUTE 3 TIMES PER DAY omeprazole 20 mg capsule,delayed release ? TAKE ONE CAPSULE BY MOUTH EVERY MORNING prednisone 2.5 mg tablet ? Take 1 tablet every day by oral route. Medications Administered None recorded. Vitals Height Weight BMI Blood Pressure 5 ft 210 lbs 16 oz 41.2 kg/m2 120/80 mm[Hg] Results Lab Results Date Name Specimen Result Interpretation Description Value Range Status Address ? 07/16/2021 CBC W/ Auto BLD ? Wbc 7.4 5.0-10.0 Final [facility] Diff 10*3/uL 10*3/uL Hospital Lab (Internal) : [address] ? ? BLD ? Rbc 4.18 4.10-5.30 Final [facility] ountry 10*6/uL 10*6/uL Hospital Lab (Internal) : [address] ? ? BLD ? Hgb 13.2 g/dL 12.0-16.0 Final [facility] g/dL Hospital L ab (Internal) : [address] ? ? BLD ? Hct 40.7 % 37.0-47.0 Final [facility] Hospital L ab (Internal) : [address] ? ? BLD High Mcv 97.4 fL 80.0-96.0 Final [facility] fL Hospital L ab (Internal) : [address] ? ? BLD ? Mch 31.6 pg 26.0-32.0 Final [facility] pg Hospital L ab (Internal) : [address] ? ? BLD ? Mchc 32.4 g/dL 31.0-35.0 Final [facility] Country g/dL Hospital L ab (Internal) : [address] ? ? BLD High Rdw 15.1 % 11.5-14.5 Final [facility] Hospital L ab (Internal) : [address] ? ? BLD ? Plt 320 130-450 Final [facility] ntry 10*3/uL 10*3/uL Hospital Lab (Internal) : [address], [place] ? ? BLD ? Anc 5.19 ? Final [facility] try 10*3/uL Hospital Lab (Internal) : [address] ? ? BLD High Nlr 4.25 0.00-3.20 Final [facility] L ab (Internal) : [address] ? ? BLD ? Neutro 70.2 % 40.0-75.0 Final [facility] Hospital L ab (Internal) : [address] ? ? BLD Low Lymph 16.5 % 20.0-50.0 Final [facility] Hospital L ab (Internal) : [address] ? ? BLD ? Tripp 8.8 % 2.0-10.0 % Final [facility] L ab (Internal) : [address] ? ? BLD ? Eos 3.5 % 1.0-6.0 % Final [facility] L ab (Internal) : [address] ? ? BLD ? Baso 0.7 % 0.0-1.0 % Final [facility] L ab (Internal) : [address] ? ? BLD ? Ig 0.3 % 0.0-0.9 % Final [facility] L ab (Internal) : [address] t 07/16/2021 BNP (B-type S High Nt-bnp 152 pg/mL 0-125 Kae l [facility] Natriuretic pg/mL Hospi [facility] Lab Peptide), (Beveling And Edging Machine Operator al): Prohormone [address] N-terminal, Krista [address] Quant, Immunoassay, Blood 07/16/2021 CMP, Serum or S ? g/r 106 mg/dL 74-106 Fin al [facility] Plasma mg/dL Hospital L ab (Internal) : [address] ? ? S ? Bun 12 mg/dL 7-18 mg/dL [facility] Hospital L ab (Internal) : [address] ? ? S ? Crea 0.7 mg/dL 0.6-1.0 Final [facility] mg/dL Hospital L ab (Internal) : [address] ? ? S ? Ca 9.1 mg/dL 8.5-10.1 Final [place] mg/dL Hospital L ab (Internal) : [address] ? ? S ? Na 141 136-145 Final [place] [facility] mmol/L mmol/L Hospital L ab (Internal) : [address] ? ? S ? K 4.2 3.5-5.1 Final [place] [facility] mmol/L mmol/L Hospital L ab (Internal) : [address] ? ? S ? Cl 105 98-107 Final [place] [facility] mmol/l mmol/l Hospital L ab (Internal) : [address] ? ? S ? Tco2 28.6 21.0-32.0 Final [facility] mmol/L mmol/L Hospital L ab (Internal) : [address] ? ? S Low Tp 6.2 g/dL 6.4-8.2 Final [facility] g/dL Hospital L ab (Internal) : [address] ? ? S ? Alb 3.4 g/dL 3.4-5.0 Final [facility] g/dL Hospital L ab (Internal) : [address] ? ? S ? Tbil 0.40 0.20-1.00 Final [facility] ountry mg/dL mg/dL Hospital L ab (Internal) : [address] ? ? S ? Alp 106 U/L 46-116 U/L Final [facility] Hospital L ab (Internal) : [address] ? ? S ? Alt 25 U/L 14-59 U/L Final [facility] ountry (Sgpt) Hospital L ab (Internal) : [address] ? ? S Low Ast 14 U/L 15-37 U/L Final [facility] ountry (Sgot) Hospital L ab (Internal) : [address] 07/16/2021 HbA1C BLD ? Ha1C 5.8 % 4.0-6.0 % Final [facility] (Hemoglobin Hospi leonardo Lab a1C), Blood (Inte rnal): [address], [place] Allergies Code Code System Name Reaction Severity Onset NKDA ? ? ? Problems Name Status Onset Date Source ? Hyperlipidemia Active ? History Obesity Active ? History Anemia Active ? History Nicotine Dependence Active ? History Chronic Obstructive Lung Disease Active ? History Gastroesophageal Reflux Disease Active ? History Cholelithiasis without Obstruction Active ? History Rheumatoid Arthritis Active ? History Snoring Active ? History History of Total Hip Arthroplasty Active ? History Artificial Knee Joint Present Active ? Hi story Adult Health Examination Active ? History Screening Mammography Active ? History History of SARS-CoV-2 Active ? [...] Information not avai lable Notes: both eyes 07/16/2021 US, Echocardiogram, Transthoracic, [facility] Radiology (Internal) Complete [address] [place] [address] (Work Place) Vaccine List Vaccine Type pneumococcal conjugate PCV 13 04/14/2021?0.5 mL rubella Td (adult) preservative free 07/05/2017?0.5 mL Tdap 05/28/2009?0.5 mL Social History Tobacco Smoking Status Light Tobacco Smoker (09/08 Notes: q uit -4 pack per day) cigarettes per day s tarted age 16- 1 ppd avera ge Have you been exposed to N chemicals or toxins? What is the highest grade or [id number] level of school you have completed or the highest degree you have received? Exposure to Asbestos N Are you currently employed? Y Are you blind or do you have Y Notes: c orrective lenses difficulty seeing? What is your code status? 0 What was the date of your 07/16/2021 most recent tobacco screening? Do you have an advanced N directive? Do you use any illicit or N recreational drugs? What is your exercise level? Occasional Notes: h ousework, stairs in home How many years have you 40 smoked tobacco? Exposure to Silica N What is your level of alcohol Moderate Notes: patient drinks 3 consumption? etoh bevs per night. She notes will drink eit her 3 vodka sodas or 3 bee rs. Which of your hands is Right dominant? Live alone or with others? with others Notes: spo use Do you have any pets? Y Language Difficulties No What is your current pack 30ormorepackyears years? Are you deaf or do you have N serious difficulty hearing? Hard of hearing or deaf in Y Notes: carlson s not have one or both ears? 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 Past Encounters 07/16/2021 Dyspnea on Exertion; Obesity; Rheumatoid Arthritis; Chronic Obstructive Lung Disease; Pneumonia Caused by SARS-CoV-2; Hypertensive Disorder Morena Beasley PA: [address] [place] [address], Ph. 07/01/2021 Pneumonia Caused by SARS-CoV-2; Paronych ia of Finger; Hypervolemia; Dyspnea on Exertion Morena Beasley PA: [address] [place] [address], Ph. 06/18/2021 Acute Exacerbation of Chronic Obstructiv e Airways Disease PEDRO Millard: [address] [place] [address], Ph. History of Present Illness ? Hypertension F/U Reported By: Patient HPI: Medications: taking medicati ons as directed, checks blood pressure at home, range:; HCTZ 12.5 grge y. Lifestyle: regular exercise, limiting/avoiding salt. 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 </div><div>No chest pain or pressure. </div><div>1 pillow, no orthopnea. </div><div>No PND. </div><di v>Patient notes history of snoring. </div><div>Not currently smo theo, she quit when hospitalized for covid19. </div><div>Currentl y drinking - 10 etoh beverages per week. </div><div>Patient has ga ined 3# since prior visit. </div><div>She is tracking her weight daily at home.</div><div>She feels fully recovered from covid19.</div> ? Lower Back Pain Reported By: Patient HPI: Location: bilateral. Quality : constant; due to arthritis. Severity: pain level 5/10, worst pain 9/10. Duration: 6 months. Context: ; sews alot during the day , sitting but tries to get up and move around. Alleviating Factors: heat, O TC medication, NSAIDs. Aggravating Factors: sitting. Associated Symptoms : no weakness, no numbness, no tingling, no swelling, no catching/lockin g, no popping/clicking, no buckling, no grinding, no instability, no radiation down leg Note: <div>04/14/21 BP upper limits of normal, persistent. </div><div> </div><div>Recommended pt start HCTZ 12.5 mg daily. (07/01/21 BP 130/84)</div><div><br&g t;</div><div>Low back pain - Chronic low back pain, axial. H/O RA. Question sacroilitis from RA. . </div><div>Recommended PT, pt declines. She will try aleve PM at bedtime with MAPAP. Can use heat, topical lidocaine and aspercream. Her veterinarian poultry started on prednisone 2.5 mg qd 07/14/21. She plans to start this today. She notes rheumatology is also recommending a referral to PT and Alyssa is going to move forward with this.</div><div> </div><div>&l t;br></div><div>Rheumatology prescribed prednisone 2.5 mg daily , states saw him 07/14/2021 phone call visit.</div>Review of Systems: ROS as noted in the HPI Review of Systems None recorded. Physical Exam ? General Adult Exam (female) Reported By: Patient Constitutional: General Appearance: healthy- appearing, well-developed, obese. Level of Distress: NAD. Ambulation : ambulating normally Psychiatric: Insight: good judgement. Men leonardo Status: active and alert, normal mood, normal affect. Orienta tion: to time, to place, to person. Memory: recent memory normal , remote memory normal Head: Head: normocephalic, atrauma tic Lungs: Respiratory effort: no dyspn ea. Auscultation: breath sounds normal, good air movement, CTA excep t as noted, no wheezing, no rales/crackles, no rhonchi Cardiovascular: Apical Impulse: not displace d. Heart Auscultation: RRR, normal S1, normal S2, no murmurs, no ru bs, no gallops Musculoskeletal:: Extremities: no edema Neurologic: Gait and Station: normal gai t, normal station. Cranial Nerves: grossly intact Skin: Nails: ; LT index finger, di stal lateral nail fold there is erythema, tenderness and whi te discharge, no fluctuance - RESOLVED
== END 2021-10-07 11:54 | disposition home or self-care (01) ==
PROVIDERS: Visit Provider Family Medicine
DX: U07.1 COVID-19 (principal)
CPT/HCPCS: 96365; Q0047

== ENCOUNTER 2023-05-13 09:16 | Outpatient (CLI) | payer OTHER, SELFPAY ==
--- NOTE | 2023-05-13 08:00 | DI.RAD_ITS ---
Exam(s) XR KNEE LT 3V AP,LAT,SHERLY EXAM: XR KNEE LT 3V AP,LAT,SHERLY CLINICAL HISTORY: L knee pain. TECHNIQUE: 2D digital imaging was performed of the left knee. Three images were obtained. AP, late ral and PA tunnel views were obtained. COMPARISON: No exams were available for comparison FINDINGS: BONES: No acute fracture is present. No bony destructive lesion is seen. JOINTS: There are marked degenerative changes of the left knee characterized by joint space narrowing and bony hypertrophy. The findings are most marked in the medial femoral tibial and patellofemoral joints. There is flattening of the articular surfaces in the medial femoral tibial joint. No joint effusion is seen. No loose body. SOFT TISSUE: Normal. IMPRESSION: Marked osteoarthritis of the left knee. DATA REPOSITORY: RADIATION DOSE DELIVERED:
--- NOTE | 2023-05-13 08:00 | DI.RAD_ITS ---
Exam(s) XR HIP LT COMPLETE AP PELVIS EXAM: XR HIP LT COMPLETE AP PELVIS CLINICAL HISTORY: L hip pain. TECHNIQUE: 2D digital imaging was performed of the left hip. Three views were obtained. AP pelvis and lateral left hip views were obtained. COMPARISON: No exams were available for comparison FINDINGS: BONES: No acute fracture is present. No bony destructive lesion is seen. JOINTS: No dislocation present. There are marked degenerative changes of the left hip with joint spac e narrowing and osteophytes. Note is made of a right total hip replacement which appears unremarkabl e. There are degenerative changes seen in both the lumbar spine in the sacroiliac joints. SOFT TISSUE: Mild atherosclerosis. IMPRESSION: Marked osteoarthritis of the left hip. DATA REPOSITORY: RADIATION DOSE DELIVERED:
== END 2023-05-13 09:17 | disposition home or self-care (01) ==
LOC: DIORS 09:16
PROVIDERS: PCP Internal Medicine; Referring Provider Internal Medicine; Visit Provider Physician Assistant
DX: M17.12 Unilateral primary osteoarthritis, left knee (principal); M16.12 Unilateral primary osteoarthritis, left hip
CPT/HCPCS: 73562; 73502

== ENCOUNTER 2023-06-20 04:42 | Outpatient (CLI) | payer OTHER, SELFPAY ==
[2023-06-20 15:22] LABS: HCT 41.3 % (36.0-46.0); HGB 13.6 g/dL (11.2-15.7); MCH 29.4 pg (27.0-33.0); MCHC 32.9 % (32.0-36.0); MCV 89 fL (80-95); MPV 8.6 fL (8.0-11.0); Platelet Count 230 10^3/uL (130-400); RBC 4.62 10^6/uL (3.93-5.22); RDW 13.4 % (11.7-14.6); RDW-SD 43.8 fL; WBC 8.93 10^3/uL (4.4-10.8)
[2023-06-20 15:57] LABS: Anion Gap 6.1 mmol/L (3-11); BUN 21 mg/dL (7-18); CO2 28.9 mmol/L (21.0-32.0); CREATININE 0.6 mg/dL (0.55-1.02); Calcium 9.7 mg/dL (8.5-10.1); Chloride 102 mmol/L (98-107); Estimated GFR 98.32 (mL/min/1.73m2); Glucose 103 mg/dL (74-106); Potassium 4.2 mmol/L (3.5-5.1); Sodium 137 mmol/L (136-145)
== END 2023-06-20 04:43 | disposition home or self-care (01) ==
LOC: LBO 04:42
PROVIDERS: PCP Internal Medicine; Visit Provider Student in an Organized Health Care Education/Training Program
DX: M16.12 Unilateral primary osteoarthritis, left hip (principal); Z01.818 Encounter for other preprocedural examination
CPT/HCPCS: 36415; 80048; 85027

== ENCOUNTER 2023-06-29 05:54 | Day surgery (SDC) | payer OTHER, SELFPAY ==
[2023-06-29] VITALS (10 sets, daily range): BP systolic 121–153; BP diastolic 43–113; PULSE 72–87; RESP 16–22; TEMP 36.1–36.7; O2SAT 88–98; BMI 42.0
[2023-06-29] MEDS: Lactated Ringers 1,000 ML 80 ML IV (06:45)
[2023-06-29] MEDS: Celecoxib 200 MG CAP 400 MG PO (06:45)
[2023-06-29] MEDS: Acetaminophen 500 MG TAB 1000 MG PO (06:45)
--- NOTE | 2023-06-29 06:45 | DI.RAD_ITS ---
Exam(s) XR HIP LT IN OR EXAM: XR HIP LT IN OR CLINICAL HISTORY: hip fracture. TECHNIQUE: 2D and realtime digital imaging was performed. COMPARISON: CR XR HIP LT COMPLETE AP PELVIS from 05/13/2023 FINDINGS: Hard copy images show placement of the left total hip prosthesis. The alignment appears satisfactor y. Please see procedure note for details. Fluoro time: 58seconds RADIATION DOSE DELIVERED: Gener=12.33 mGy
--- NOTE | 2023-06-29 07:05 | W.ANESPRE ---
General Info Date of Service Date Performed: 06/29/23 Height: 5 ft 1 in Weight: 100.9 kg Body Mass Index (BMI): 42.0 Surgical Procedure: Operation Date: 06/29/23 07:50 Proposed Procedure Side Surgeon p Hip Total Hip Anterior, ACTIS Left Jared Meier MD Meds Allergies and Home Medications Allergies Allergy/AdvReac Type Severity Reaction Status Date / Time No Known Allergies Allergy Verified 06/28/23 11:30 Home Medication Medication Instructions Recorded albuterol sulfate 90 mcg/actuation 2 puff inhalation Q6H PRN 05/13/23 aerosol inhaler (ProAir HFA) furosemide 20 mg tablet 20 mg PO DAILY 05/13/23 hydrochlorothiazide 12.5 mg tablet 12.5 mg PO DAILY 05/13/23 omeprazole 20 mg capsule,delayed 20 mg PO DAILY 05/13/23 release umeclidinium 62.5 mcg-vilanterol 1 inh inhalation DAILY 05/13/23 25 mcg/actuation powdr for inhalation (Anoro Ellipta) adalimumab 40 mg/0.8 mL 40 mg subcut Q2W 06/02/23 subcutaneous syringe kit (Humira) cholecalciferol (vitamin D3) 50 50 mcg PO DAILY 06/02/23 mcg (2,000 unit) capsule folic acid 1 mg tablet 1 mg PO DAILY 06/02/23 meloxicam 15 mg tablet 15 mg PO DAILY 06/02/23 multivitamin 1 tab PO DAILY 06/02/23 tramadol 50 mg tablet 50 mg PO TID PRN 06/20/23 Current Visit Medications: Current Medications Generic Name Dose Route Start Last Admin Trade Name Luisana PRN Reason Stop Dose Admin Acetaminophen 1,000 mg 06/29/23 06:00 06/29/23 06:45 Acetaminophen 500 Mg Tab PO 07/29/23 05:59 1,000 mg PREOP MOJGAN Administration Celecoxib 400 mg 06/29/23 06:00 06/29/23 06:45 Celecoxib 200 Mg Cap PO 07/29/23 05:59 400 mg PREOP MOJGAN Administration Tranexamic Acid 1,000 mg/ 60 mls @ 360 mls/hr 06/29/23 06:00 Sodium Chloride IV 07/29/23 05:59 PREOP MOJGAN Ringer's Solution 1,000 mls @ 80 mls/hr 06/29/23 06:00 06/29/23 06:45 IV 07/28/23 23:59 80 mls/hr INFUSION MOJGAN Administration Cefazolin Sodium/Dextrose 2 gm in 50 mls @ 100 mls/hr 06/29/23 06:00 Ancef Duplex IVPB 07/28/23 23:59 PREOP MOJGAN IV Miscellaneous Supplies 1 each 06/29/23 06:00 Iv Access IV 07/28/23 23:59 DIRECTED MOJGAN Sodium Chloride 0 ml 06/29/23 06:00 Normal Saline Flush 10 Ml Syr IV 07/28/23 23:59 PRN PRN Sodium Chloride 0 ml 06/29/23 06:00 Normal Saline 10 Ml Vial IJ 07/28/23 23:59 DIRECTED PRN Sterile Water 0 ml 06/29/23 06:00 Water,Injection,Sterile 10 Ml Vial IJ 07/28/23 23:59 DIRECTED PRN PFSH Active Problems Active Problems: Problem Status Onset Code Rheumatoid arthritis M06.9 HIREN (obstructive sleep apnea) G47.33 Obesity E66.9 Nicotine dependence F17.200 Hypertension I10 Hyperlipidemia E78.5 GERD (gastroesophageal reflux disease) K21.9 COPD (chronic obstructive pulmonary disease) J44.9 Primary osteoarthritis of left hip M16.12 Primary osteoarthritis of left knee M17.12 Medical History Medical History History of COVID-19 Herpes zoster Anemia Surgical History Surgical History History of total right hip replacement History of total right knee replacement (TKR) Tobacco Smoking/Tobacco Use Status: Current every day Tobacco Type: cigarettes Alcohol Alcohol Intake: current Alcohol intake frequency: a few times a month Substance Use Substance use: Never Substance use type: does not use Vital Signs and Lab Results Vital Signs Most Recent Vital Signs in EMR: Most Recent Vital Signs Temp Pulse Resp BP Pulse Ox 36.6 C 87 16 134/57 L 95 06/29/23 06:16 06/29/23 06:16 06/29/23 06:16 06/29/23 06:16 06/29/23 06:16 Lab Results Blood Type / Crossmatch: No Data to Display Complete Blood Count: White Blood Count 8.93 10^3/uL (4.4-10.8) 06/20/23 15:15 Red Blood Count 4.62 10^6/uL (3.93-5.22) 06/20/23 15:15 Hemoglobin 13.6 g/dL (11.2-15.7) 06/20/23 15:15 Hematocrit 41.3 % (36.0-46.0) 06/20/23 15:15 Platelet Count 230 10^3/uL (130-400) 06/20/23 15:15 Complete Metabolic Panel: Sodium 137 mmol/L (136-145) 06/20/23 15:15 Potassium 4.2 mmol/L (3.5-5.1) 06/20/23 15:15 Chloride 102 mmol/L (98-107) 06/20/23 15:15 Carbon Dioxide 28.9 mmol/L (21.0-32.0) 06/20/23 15:15 BUN 21 mg/dL (7-18) H 06/20/23 15:15 Creatinine 0.6 mg/dL (0.55-1.02) 06/20/23 15:15 Est GFR (CKD-EPI 2020) 98.32 (mL/min/1.73m2) 06/20/23 15:15 Calcium 9.7 mg/dL (8.5-10.1) 06/20/23 15:15 Glucose 103 mg/dL (74-106) 06/20/23 15:15 Liver Function Panel: No Data to Display Coagulation Panel: No Data to Display Cardiac Panel: No Data to Display Arterial Blood Gas: No Data to Display Venous Blood Gas: No Data to Display Pancreas Panel: No Data to Display Thyroid Panel: No Data to Display Infectious Disease: No Data to Display Blood Cultures: No Data to Display Toxicology Panel: No Data to Display Anesthesia Assessment and Plan Anesthesia History Personal History: No History of Anesthesia Complications Family History: No Family History of Anesthesia Complications Exercise Tolerance Exercise Tolerance: Metabolic Equivalents>4 Pertinent Negatives Pertinent Negatives: No Symptoms of GERD and No Major Cardiovascular Symptoms or Complaints Cardiac & Pulmonary Exam Cardiac Exam: Normal S1/S2 Heart Sounds Pulmonary Exam: Clear Bilateral Breath Sounds Implantable Cardiac Device Does patient have a Pacemaker or an ICD?: No Airway Exam Known Difficult Airway: No Mallampati Class: 2 Mouth Opening: Normal (> 3cm) Thyromental Distance: Less than 3 cm Neck Range of Motion: Full ROM Neck Circumference: Normal Teeth Condition: Normal Dentition ASA Classification ASA Score: ASA 3 Emergency Case?: No NPO Status NPO Status: NPO Clears >2 hours, Solids >8 hours Anesthesia Plan Resuscitation Status: Full Code Anesthesia Technique: Spinal Anesthesia Airway Planned: Natural Airway Monitors Used: Standard Monitors
[2023-06-29] MEDS: ceFAZolin 2 GM/50 ML BAG IVPB (08:09)
[2023-06-29] MEDS: fentaNYL 100 MCG/2 ML VIAL IVP ×2 (10:33→10:40)
--- NOTE | 2023-06-29 10:45 | W.PM.OP ---
Date of service: 06/29/23 Time of Service: 08:00 Operative Note Operative Note DATE OF PROCEDURE: 06/29/23 PRE-OP DIAGNOSIS: Left Hip Osteoarthritis POST-OP DIAGNOSIS: same PROCEDURE: Left Anterior Total Hip Arthroplasty with Intraoperative Navigation SURGEON: Jared Meier PEDIATRIC PHYSICAL THERAPIST: Grady Locke ANESTHESIA TYPE: Spinal Refer to Anesthesia Record ESTIMATED BLOOD LOSS: 200 PATHOLOGY: none sent TOURNIQUET TIME: 0 COMPLICATIONS: None Patient was transported to: PACU Patient's condition: stable Implants: 1. Depuy Newington Acetabular Component, 54mm 2. Depuy Acetabular Liner, [id number] 3. Depuy Actis Standard Collared Femoral Stem, Size 5 4. Depuy Altrx Ceramic Femoral Head, Size 36+8.5mm Indications: I have seen Belem in clinic for symptoms of hip arthritis, confirmed with radiographic findings. She Has exhausted nonoperative methods and was having significant limitations in daily function and desired better function and less pain. I discussed the technical details of a hip replacement. I explained the risks of the procedure to include, but not limited to, bleeding, infection, pain, stiffness, fracture, damage to nerves and vessels, damage to muscles and tendons, loosening, instability, leg length inequality, need for repeat procedure, blood clot and cardiopulmonary demise. Despite these risks, Belem elected to proceed. Findings: There was significant signs of arthritis throughout the hip. Procedure Description: Belem was greeted in the preoperative holding area where the correct side was identified and marked. The consent was reviewed with the patient and signed. The history and physical was updated. All questions were answered. She was taken back to the operating room. A spinal anesthestic was then administered. The feet were wrapped with cast padding and Coban and then placed into the boot liners and then into the boots. Care was taken to protect the skin and make sure the heels were fully down and the boots were stable. The patient was then positioned onto the HANA table. Both legs were held in a neutral position. SCDs were applied. The patient was then slid down onto a peroneal post. Prophylactic antibiotics in the form of Cefazolin were administered. 1g of Tranxemic Acid was given intravenously within 30 minutes of incision. The left leg was then prepped with Chloraprep and draped in a standard fashion. A second prep with Chloraprep was performed prior to placement of a shower-curtain type drape with Iodine impregnated skin protection. A timeout to confirm correct identity, side and site, procedure, allergies, anesthesia, and medical concerns was performed. An obliquely oriented incision was made starting lateral to the ASIS and running distal over the Tensor Fascia Emmie (TFL) muscle belly toward the fibular head, approximately 10cm. The skin and soft tissue was dissected sharply, through Tyler?s fascia, and to the fascia of the TFL. With the fascia and superior border of the IT band identified, the fascia was incised with a new knife just above any perforators from the IT band. The TFL muscle belly was bluntly dissected away from the fascia and moved laterally. The fat between TFL and rectus was identified to ensure the dissection was not within the TFL. Blunt dissection created space between abductors and the capsule and retractor was placed over the lateral femoral neck. The fibers of the rectus femoris tendon were identified and these were freed from the anterior capsule. A second cobra retractor was placed around the medial femoral neck. The TFL was further retracted laterally to show the deep fascia. Careful dissection through this layer identified three main crossing vessels of the lateral femoral circumflex. These were cauterized in multiple locations and then cut without any noticeable bleeding. The TFL was further released bluntly from the deep fascia to expose anterior hip capsule and fat The Jamie orthopaedic retractor was then placed beneath the TFL and against sartorius and medial soft tissues to protect and retract the soft tissues. A T-capsulotomy was then performed starting at the superior lateral acetabulum and moving distally to the intertrochanteric ridge. These capsular flaps were tagged with a No. 1 Ethibond and elevated from within. The capsular flaps were released to the shoulder of the lateral neck and to the lesser trochanter to give excellent visualization of the proximal femur. A neck osteotomy was performed using an oscillating saw based on preoperative templates. This cut started in the shoulder and of the lateral neck and exited medially. The saw was at all times directed medially to avoid injury to the greater trochanter. Gross traction was applied to the leg and the osteotomy opened. The femoral head was removed with a corkscrew, making sure to protect the TFL on its exit. Traction was released after head removal. This was measured on the back table to determine the starting reamer size. Portions of the rectus obscuring visualization were minimally elevated off the superior acetabulum. An anterior retractor was placed over the anterior wall between capsule and labrum and attached to the Gripper retraction system. The femur was rotated to 90 degrees and medial capsule was fully released until the lesser trochanter was palpable and visible; the femur was returned to 30 degrees. A posterior retractor was placed similarly between capsule and labrum. This provided excellent visualization. The contents of the cotyloid fossa were removed with electrocautery and the labrum was removed with a knife. There was a notable floor osteophyte. There was significant chondromalacia of the superior acetabulum. Acetabular reaming began with a 48mm reamer. This first reaming was directed anterior to posterior and medial to get down to the true floor. This was inspected and reamed until the true floor was reached. The anterior retractor was then released and entry and exit was provided by traction on the capsular flaps. I then reamed sequentially up to a 52mm reamer where good fit was obtained. The larger reamers were oriented based on anatomical reference of the anterior and lateral magallon to ensure proper abduction and anteversion. Positioning and size was confirmed with the fluoroscopy. A 52mm Depuy Newington acetabular component was selected. The deep tissues were irrigated. The 52 mm cup was attempted to be placed but I was unable to get any significant preliminary stability of the cup. Fluoroscopy was utilized to see the cup was nearly fully seated but without significant grab of the acetabulum. I remove the acetabular component and we reamed the acetabulum slightly deeper. However, with the 52 mm cup I was still unable to get significant purchase. Therefore, I went up to a size 54 mm cup, reaming to 53 mm. The acetabular component was then impacted in a position of about 40-45 degrees of abduction and 15-20 degrees of anteversion, using the patient?s anatomy as the ultimate landmark. Fluoroscopy was used to confirm this. There was excellent studio couch frame builder of the acetabular component and the inserting handle was removed. A primary acetabular screw was placed into the ilium by drilling through one of the holes in the acetabular component. This was measured and an approrpriately sized screw was placed with excellent purchase. It was checked not to be proud. A second screw was placed in a similar fashion. The acetabular liner, Depuy [id number] polyethylene liner, was inserted and lined up with the tines of the acetabular component. There was no soft tissue interposition. The liner was then impacted into position and confirmed to be well-seated. A portion of the christopher-articular cocktail was then injected around the acetabulum into the capsule and periosteum. This cocktail consisted of 123mg of Ropivacaine, 0.25mg of Epinephrine, 0.04mg of Clonidine, and 15mg of Ketorolac, diluted to 50cc. The leg was rotated to 120 degrees. Any remaining medial capsule was released until the lesser trochanter was easily palpable. A retractor was placed medially. The lateral capsule was further released into the shoulder to allow access to the greater trochanter. A Mondragon retractor was placed over the greater trochanter which allowed the trochanter to flip in front of the capsule for excellent exposure. The leg was brought down into maximal extension and 20 degrees of adduction while ensuring there was no impingement on the acetabulum. Any remnant capsule within the trochanter was released. Piriformis and obturator externis were identified and protected. There was excellent access to the proximal femur. The lateral neck remnant was removed with a rongeur. A blunt canal probe was used to identify the canal and trajectory for later broaching. A box osteotome initiated the broach course. A small curved rasp and a curved curette were used to work laterally. Broaching then began with a starter Actis broach. This was inserted manually around the trochanter and into the canal before mallet blows. The broach was seated to a few millimeters below the cut level based on the neck cut and the preoperative template. Sequential broaching was continued with the MUV Interactivese pneumatic broaching device until a tight fit was obtained with good rotational control of the femur. A trial standard neck was inserted along with a +5 trial head. The leg was brought out of extension and adduction and then reduced with traction and internal rotation. The leg was stable anteriorly in a position of 30 degrees of extension and 90 degrees of external rotation. Fluoroscopy was used to ensure there was no fracture and the stem was seated well. Leg lengths were checked with an AP pelvis and pelvic reference points. Blink (air taxi) navigation system was used to confirm appropriate positioning and leg length and offset. Once content with the desired offset and leg lengths, the leg was brought back into extension, external rotation and adduction. The periosteum and surrounding tissue was injected with remaining portion of the christopher-articular cocktail. The proximal femur was irrigated as well as the deep tissues. The Depuy Actis standard collared stem, size 5, was then manually inserted into the proximal femur making sure to control rotation. It was then malleted into position with light blows, giving breaks to allow bone expansion and decrease risk of fracture. The selected Depuy Altrx Ceramic Head, size 36+8.5mm, was then placed onto the clean and dry trunnion and secured with impaction onto the tapered fit. The leg was brought back out of extension and adduction and reduced with traction and internal rotation. Stability was confirmed with no shuck at 90 degrees of external rotation and 30 degrees of extension. No impingement through range of motion arc. Final x-ray images were obtained with fluoroscopy to confirm adequate positioning and no intraoperative fracture. The deep tissues were thoroughly irrigated with Surgiphor, betadine solution. This was allowed to sit in the wound for 3 minutes before being thoroughly irrigated out with normal saline. The capsule was then reapproximated with the previously placed Ethibond sutures. The TFL fascia was finally closed with a No. 2 Stratafix, barbed suture. Deep tissues were then reapproximated with 0 Vicryl and a running 2-0 Vicryl. The skin was closed with a running 4-0 Monocryl in a subcuticular fashion. This was reinforced with skin glue. A Mepilex silver dressing was applied. At the end of the case, all counts were correct. Pat was transferred to the hospital bed without difficulty and suffering no apparent complication. Pat has a good prognosis. Physical therapy will start today and without restrictions, weight-bearing as tolerated. Aspirin 81mg BID will be used for DVT prophylaxis.
--- NOTE | 2023-06-29 11:20 | W.PM.DSUDISC ---
Date of service: 06/29/23 Time of Service: 10:20 Discharge Plan Disposition Patient Disposition: Home Condition: Good Discharge Details Reason For Visit: L THR Attending Provider: Jared Meier Primary Care Provider: Morena Beasley Home Meds and New Rx's Prescriptions: New celecoxib 200 mg capsule 200 mg PO BID Qty: 60 0RF aspirin 81 mg tablet,delayed release (DR/EC) 81 mg PO BID Qty: 60 0RF acetaminophen 500 mg tablet 1,000 mg PO TID Qty: 90 3RF dexamethasone 4 mg tablet 4 mg PO DAILY Qty: 2 0RF oxycodone 5 mg tablet 5 mg PO Q4H MDD 6 tabs PRN (Reason: pain) Qty: 20 0RF Continued tramadol 50 mg tablet 50 mg PO TID PRN hydrochlorothiazide 12.5 mg tablet 12.5 mg PO DAILY Anoro Ellipta 62.5-25 mcg/actuation blister with device 1 inh inhalation DAILY furosemide 20 mg tablet 20 mg PO DAILY omeprazole 20 mg capsule,delayed release(DR/EC) 20 mg PO DAILY albuterol sulfate [ProAir HFA] 90 mcg/actuation HFA aerosol inhaler 2 puff inhalation Q6H PRN Humira 40 mg/0.8 mL syringe kit 40 mg subcut Q2W multivitamin Tablet 1 tab PO DAILY cholecalciferol (vitamin D3) 50 mcg (2,000 unit) capsule 50 mcg PO DAILY folic acid 1 mg tablet 1 mg PO DAILY Discontinued meloxicam 15 mg tablet 15 mg PO DAILY Discharge Instructions Additional Instructions: Total Hip Discharge Instructions Activity: The most important activity is to walk. You should try to take short walks a few times a day. You have no restrictions on movement or positioning, but do not try to force what you do. You will find some stiffness and weakness with hip flexion (lifting your knee). Do not try to strengthen this too early, continue to practice walking and stairs and this will come. - Outpatient physical therapy can be helpful to help return you to a normal gait and improve your flexibility and strength. This can start around 2 weeks. For some patients, it?s not necessary. Usually this is determined at the time of discharge or at the first post-operative visit. - You should wear the NEYDA hose on both legs for 2 weeks. Dressing: Keep the surgical dressing in place for at least one week. After the first week it may be removed and replace with light gauze and tape or nothing. It may get wet after 3 days but avoid soaking the dressing. If it gets wet, just lightly pat dry. It is important to always keep some gauze between skin folds, especially when you are sitting. Spend some time with the wound exposed when you are lying flat as the incision does wrinkle onto itself. Medications: - You should take Tylenol and an anti-inflammatory Celebrex as your primary pain control medications. If the Celebrex is too expensive or not covered, please call the office for another alternative (Advil/Ibuprofen or Naproxen/Aleve). - You have been prescribed a stronger pain medication Oxycodone for breakthrough pain, take as needed as prescribed. - You have will continue your omeprazole to help reduce stomach acid and reflux. - You have also been prescribed Decadron to help with post-operative nausea and pain. You will take this for two days starting tomorrow. - You will be taking Aspirin 81mg twice a day for DVT prevention unless instructed otherwise. - If you have constipation you should take Colace or Miralax (both [id number]). It takes most people 3-4 days to have a bowel movement. Follow-up: 2 weeks July 14 at 10:00 am. If you have any acute concerns or questions, please do not hesitate to contact the office at [phone]. You may contact Dr. Meier with any questions after hours through the hospital at [phone] or on his cell phone at [phone]. Stand Alone Forms: Anesthesia Discharge InstRob, Arvind Chin (DSU) Referrals: Jared Meier MD [ [facility] STAFF PHYSICIAN] - Equipment/Supplies: Walker Activity:: Activity as Tolerated Shower/Bathe:: 72 hours Diet:: As Tolerated Discharge Orders Discharge Orders: Discharge Order (Routine); Ordered 06/29/23 Ordered By: Jared Meier Discharge Data Discharge Date/Time-TO BE ENTERED AT DEPARTURE: 06/29/23 13:03
[2023-06-29] MEDS: oxyCODONE 5 MG TAB PO (11:35)
--- NOTE | 2023-06-29 12:02 | PT.INIE ---
PT Notes Visit Reasons: L THR Physical Therapy Day Surgery Initial Evaluation Date: 06/29/2023 Referring Doctor: PEDRO Donaldson PT Orders: PT CONSULT: S/P Ortho Surgery Precautions: WBAT on the L LE with AD. Patient Profile/Admitting Diagnosis: Lo is a 67-year-old female patient with primary osteoarthritis of the R hip and is S/P R anterior total hip arthroplasty on postoperative day 0. PMHX: Medical History (Updated 06/20/23 @ 14:56 by PEDRO Donaldson) History of COVID-19 Herpes zoster Anemia Surgical History (Updated 05/13/23 @ 08:11 by PEDRO Donaldson) History of total right hip replacement History of total right knee replacement (TKR) Social History/Home Situation: Lives with in a private home with 2-3 steps to enter with B rails. Indpendent with all mobility ADL performance with occasional use of FWW due to worsening R hip pain. Equipment Owned/DME: 's FWW, may need a different FWW for her for home Subjective: Reports pain in her L gluteal area that did not limit her mobility performance. Denies headache, chest pain, and lightheadedness. Objective: General Observation: Supine in bed. Mepilex Ag over surgical incision. TEDS to B legs. Mental Status: Alert and oriented x 4 Pain: 2-3/10 pain int he left gluteal area ROM: Right Lower Extremity: Hip flexion WFL. Hip abduction WFL. Knee flexion WFL. Ankle dorsiflexion WFL. Ankle plantarflexion WFL. Left Lower Extremity: Hip flexion WFL. Hip abduction WFL. Knee flexion WFL. Ankle dorsiflexion WFL. Ankle plantarflexion WFL. Strength: Right Lower Extremity: Hip flexors 5/5. Hip abductors 5/5. Knee flexors 5/5. Knee extensors 5/5. Ankle dorsiflexors 5/5. Ankle plantarflexors 5/5. Left Lower Extremity:Hip flexors 4/5. Hip abductors 4/5. Knee flexors 5/5. Knee extensors 4/5. Ankle dorsiflexors 5/5. Ankle plantarflexors 5/5. Sensation: Intact as to pain and light pressure bilateral lower extremities Bed Mobility/Transfers: Supine to sit standby assist Sit to stand contact-guard assist with cues given for hand placement to maximize safety Stand to sit standby assist with cues given for hand placement to maximize safety Bed to chair standby assist with cues given for hand placement to maximize safety Gait: Facilitated safe and correct performance of level surface ambulation utilizing a front wheeled walker covering a distance of 150 feet with a step through heel?toe gait pattern requiring standby assist only. No LOB. No shortness of breath. Stairs: Guided patient through safe and correct navigation of 6 x 4 inch steps and 4 x 6 inch steps while holding onto bilateral rails with step to gait pattern requiring only standby assist. Balance: Static Sitting: Normal Dynamic Sitting: Normal Static Standing: Fair Dynamic Standing: fair Special Tests: Mobility Limitations Standardized Measure [facility]-P[facility] 6 clicks Basic Mobility Inpatient Short Form: Raw Score: 23 CMS Score: 11% deficit Informed Consent/Education: Patient instructed in purpose of PT consult. Packet containing ALYSSA exercise protocol has been given to patient. Education and training on initial set of exercises that can be done at home have been completed with patient. Trained patient with correct performance of exercises below to maximize motor control, joint flexibility, soft tissue extensibility of the [] hip musculature to facilitate return to independent functional mobility performance. Access Code: [email or web address] URL: [email or web address] Date: 06/29/2023 Prepared by: Alissa Ward Exercises - Gluteal Sets - 1 x daily - 7 x weekly - 1 sets - 10 reps - 5 hold - Supine Heel Slide - 1 x daily - 7 x weekly - 1 sets - 10 reps - 5 hold - Supine Ankle Pumps - 1 x daily - 7 x weekly - 1 sets - 10 reps - 5 hold - Seated March - 1 x daily - 7 x weekly - 1 sets - 10 reps - 5 hold - Seated Long Arc Quad - 1 x daily - 7 x weekly - 1 sets - 10 reps - 5 hold Assessment: Patient requires the use of a front-wheeled walker for all mobility ADL performance to maximize independence and reduce fall risk. Patient presents with clinical signs and symptoms consistent with current/admitting diagnoses that have resulted to mobility limitations, gait instability, generalized weakness, and impairment of motor control as demonstrated by the following impairment level findings: 1. Decreased strength to left hip major muscle groups 2. Impaired standing balance Impairments are contributing to the following functional limitations: 1. Inability to safely ambulate without assistive device 2. Increase completion time for mobility ADL performance 3. Increased fall risk Patient is assessed as a 82636 moderate complexity based on the following: History: 67-year-old female with impairment level findings, functional limitations, and past medical history as indicated above Examination: Demonstrable impairment in strength, balance, and mobility level with underlying impairments and functional limitations as documented above Presentation: Evolving Decision Makin moderate complexity Goals: N/A. PT evaluation and 1-2 treatment sessions only for functional mobility training using recommended AD and for HEP instruction. Plan of Care/Treatment Plan: N/A. PT evaluation and 1-2 treatment session only for functional mobility training using recommended AD and for HEP instruction. DISCHARGE RECOMMENDATIONS: Home when medically cleared by orthopedic surgeon. Recommend outpatient PT services in order to optimize functional mobility outcomes and facilitate return to independent community ambulation without an assistive device. TREATMENT CODE/TIME: 61828 x 20 minutes for 1 unit beginning at 12:02 PM. Thank you for the opportunity to participate in the care of this patient. Alissa Ward PT, DPT, CLT [facility] [place], [place]
--- NOTE | 2023-06-29 14:00 | W.ANESPOSTOP ---
Postoperative Evaluation Date, Time and Location Date Performed: 06/29/23 Time Performed: 12:30 Patient Location: Day Surgery Unit Vital Signs Most Recent Imported Vital Signs: Most Recent Vital Signs Temp Pulse Resp BP Pulse Ox 36.4 C L 87 16 151/56 H 94 06/29/23 12:25 06/29/23 12:25 06/29/23 12:25 06/29/23 12:25 06/29/23 12:25 Pain Score Most Recent Pain Score: Most Recent Pain Score Pain Level 3 06/29/23 12:25 Assessment Mental Status: Awake (Alert & Oriented to Patient Baseline) Airway and Respiratory Function: Patent airway with normal (patient baseline) respiratory exam Cardiovascular Function: Hemodynamically Stable Hydration Status: Adequately Hydrated Nausea & Vomiting: No Nausea or Vomiting Pain: Pain is tolerable per patient Peripheral Nerve Block: Patient did not receive a nerve block
== END 2023-06-29 13:03 | disposition home or self-care (01) ==
PROVIDERS: PCP Internal Medicine; Visit Provider Student in an Organized Health Care Education/Training Program
PROC: (CPT 27130; principal; 2023-06-29 07:30)
DX: M16.12 Unilateral primary osteoarthritis, left hip (principal); M06.9 Rheumatoid arthritis, unspecified; Z79.899 Other long term (current) drug therapy; I10 Essential (primary) hypertension; D64.9 Anemia, unspecified
CPT/HCPCS: 27130; 20985; 97162; 73501; J0690; J1100; J2250; J2405; J3010

== ENCOUNTER 2023-07-14 11:38 | Outpatient (CLI) | payer OTHER, SELFPAY ==
--- NOTE | 2023-07-14 09:15 | DI.RAD_ITS ---
Exam(s) XR HIP LT COMPLETE AP PELVIS EXAM: XR HIP LT COMPLETE AP PELVIS INDICATION: 1st post op L ALYSSA. COMPARISON: CR XR HIP LT COMPLETE AP PELVIS from 05/13/2023 XA XR HIP LT IN OR from 06/29/2023 TECHNIQUE: 2D digital imaging was performed. Three views. FINDINGS: There has been no change in the alignment of the bilateral hip prostheses. No abnormal bony lucenci es are seen. IMPRESSION: No acute abnormality. Stable appearance of bilateral hip prostheses. DATA REPOSITORY: RADIATION DOSE DELIVERED:
== END 2023-07-14 11:39 | disposition home or self-care (01) ==
LOC: DIORS 11:38
PROVIDERS: PCP Internal Medicine; Visit Provider Physician Assistant
DX: Z96.642 Presence of left artificial hip joint (principal)
CPT/HCPCS: 73502

== ENCOUNTER 2024-09-27 15:57 | Outpatient (CLI) | payer MEDICARE, SELFPAY ==
--- NOTE | 2024-09-27 13:15 | DI.RAD_ITS ---
Exam(s) XR HIP LT AP LAT ONLY EXAM: XR HIP LT AP LAT ONLY INDICATION: ANNUAL F/U L ALYSSA. COMPARISON: CR XR HIP LT COMPLETE AP PELVIS from 07/14/2023 TECHNIQUE: 2D digital imaging was performed. Two views. FINDINGS: Stable alignment of the left total hip prosthesis. No abnormal surrounding bony lucencies. DATA REPOSITORY: RADIATION DOSE DELIVERED:
== END 2024-09-27 15:58 | disposition home or self-care (01) ==
LOC: DIORS 15:58
PROVIDERS: PCP Internal Medicine; Referring Provider Internal Medicine; Visit Provider Physician Assistant
DX: M17.12 Unilateral primary osteoarthritis, left knee (principal); Z96.642 Presence of left artificial hip joint
CPT/HCPCS: 99213; 73502

== ENCOUNTER 2024-12-27 14:06 | Outpatient (CLI) | payer MEDICARE, SELFPAY ==
--- NOTE | 2024-12-27 10:45 | DI.RAD_ITS ---
Exam(s) XR HIP LT AP LAT ONLY EXAM: XR HIP LT AP LAT ONLY CLINICAL HISTORY: hip fx. TECHNIQUE: 2D digital imaging was performed of the left hip. Two views were obtained. AP pelvis an d lateral left hip views were obtained. COMPARISON: CR XR HIP LT COMPLETE AP PELVIS from 07/14/2023 CR XR HIP LT AP LAT ONLY from 09/27/2024 CR XR HIP LT MIN 2V AND PELVIS from 11/12/[address] HIP LT WO CONTRAST from 11/12/2024 FINDINGS: BONES: Callus formation has developed about the fracture along the lateral aspect of the proximal fem ur. No new fractures identified. No bony destructive lesion is seen. JOINTS: No dislocation present. The patient has left total hip arthroplasty appears unremarkable. SOFT TISSUE: Normal. IMPRESSION: No change in alignment of the healing periprosthetic fracture of the proximal left femur. DATA REPOSITORY: RADIATION DOSE DELIVERED:
== END 2024-12-27 14:07 | disposition home or self-care (01) ==
LOC: DIORS 14:07
PROVIDERS: PCP Internal Medicine; Referring Provider Internal Medicine; Visit Provider Physician Assistant
DX: Z96.642 Presence of left artificial hip joint (principal); M25.552 Pain in left hip; M97.02XD Periprosthetic fracture around internal prosthetic left hip joint, subsequent encounter; W01.0XXD Fall on same level from slipping, tripping and stumbling without subsequent striking against object, subsequent encounter
CPT/HCPCS: 99213; 73502